=== PATIENT | female | born 1930 | race Caucasian/White ===

== ENCOUNTER 2017-03-23 13:42 | Inpatient (IN) ==
[2017-03-23] MEDS ORDERED: *HR* FentaNYL (PF) 100 MCG/2 ML VIAL IVP ONE ×2 (13:47→15:42)
[2017-03-23] MEDS ORDERED: Ondansetron 4 MG/2 ML VIAL IVP ONE (13:53)
--- NOTE | 2017-03-23 13:56 | Emergency Department Note ---
Disposition Clinical Impression: Fracture of hip Qualifiers: Encounter type: initial encounter Fracture type: closed Laterality: right Qualified Code(s): S72.001A - Fracture of unspecified part of neck of right femur, initial encounter for closed fracture Disposition: Admitted As Inpatient Condition: Fair General Adult HPI - General Chief complaint: ED Extremity Injury, Lower Stated complaint: fall, right hip pain Time Seen by Provider: 03/23/17 13:45 Source: patient, EMS Limitations: no limitations Nursing Notes Reviewed: Yes Vital Signs Reviewed: Yes - History of Present Illness Pain Scale: 0 - Related Data Home Medications Medication Instructions Recorded Confirmed Atorvastatin Calcium [Atorvastatin 80 mg PO QPM 03/23/17 03/23/17 Calcium] Brinzolamide 1% [Azopt] 1 drop BOTH EYES QPM 03/23/17 03/23/17 Latanoprost [Xalatan] 1 drop RIGHT EYE QPM 03/23/17 03/23/17 Raloxifene [Evista] 60 mg PO QAM 03/23/17 03/23/17 Sertraline [Zoloft] 100 mg PO QPM 03/23/17 03/23/17 Allergies Allergy/AdvReac Type Severity Reaction Status Date / Time No Known Allergies Allergy Verified 03/23/17 13:44 Past Medical History - Past Medical History Medical history: Reports: hyperlipidemia, osteoporosis Psychiatric history: Reports: depression - Social History Smoking Status: Never smoker Alcohol use: Reports: none Drug use: Reports: none Physical Exam - General Limitations: no limitations General appearance: alert, in no apparent distress Course Vital Signs Temperature 98 F 03/23/17 13:44 Pulse Rate 83 03/23/17 13:44 Respiratory Rate 20 03/23/17 13:44 Blood Pressure 169/94 03/23/17 13:44 O2 Sat by Pulse Oximetry 91 03/23/17 13:44 Temperature 98 F 03/23/17 13:44 Pulse Rate 77 03/23/17 15:26 Respiratory Rate 20 03/23/17 15:26 Blood Pressure 160/94 03/23/17 15:26 O2 Sat by Pulse Oximetry 97 03/23/17 15:26 Oxygen Delivery Oxygen Delivery Room Air Medical Decision Making - MDM Narrative Medical decision making narrative: I examined this patient and my medical decision-making was reviewed with the Resident Physician. I agree with the documented findings, disposition and treatment plan as described except to the extent set forth below. Patient seen and evaluated on arrival with EMS by Dr. Jacob and myself, agrees his evaluation and management plan, supervised the care of the patient felt stated. Patient was in her driveway twisted around and she fell she things her feet became entangled. Landed on her right hip. Pain and hip pain is not dereliction moves or stands on it. Denies any other injuries did not strike her head. There are some for pain x-ray the area and then reassess. She is in agreement with plan. Hip X-Ray 03/23/17 13:46 IMPRESSION: Acute traumatic displaced and angulated subcapital right femoral neck fracture. D/ / Jean-Pierre Calderon MD / Jean-Pierre Calderon MD Interpreting Provider: Jean-Pierre Calderon MD 1520 hrs.: Patient does have a fracture. Airam speak with orthopedics. We will get basic labs for surgery and admit her to the hospitalist orthopedics consult in. She and family in agreement with plan. Impressions acute right femoral neck fracture status post fall. - Lab Data Result diagrams: 03/23/17 15:33 03/23/17 15:33 Lab Results 03/23/17 03/23/17 03/23/17 Range/Units 15:33 15:33 15:33 WBC 12.2 H (4.3-11.1) K/mcL RBC 4.51 (3.82-4.97) M/mcL Hgb 12.5 (11.5-15.4) g/dL Hct 39.9 (35.3-44.9) % MCV 88.5 (83.0-100.0) fL MCH 27.7 L (28.0-33.3) pg MCHC 31.3 L (31.6-35.5) g/dL RDW 15.1 H (11.5-14.5) % Plt Count 218 (140-400) K/mcL MPV 9.5 (9.4-12.4) fL Immature Gran % 0.7 (0-4) % Seg Neutrophils % 86.1 % Lymphocytes % 7.0 % Monocytes % 5.8 % Eosinophils % 0.2 % Basophils % 0.2 % Neutrophils # 10.5 H (1.6-8.9) K/mcL Lymphocytes # 0.9 (0.6-4.6) K/mcL Monocytes # 0.7 (0.0-1.3) K/mcL Eosinophils # 0.0 (0.0-0.6) K/mcL Basophils # 0.0 (0.0-0.2) K/mcL PT 11.4 (9.4-12.1) Seconds INR 1.1 Sodium 143 (136-145) mEq/L Potassium 4.2 (3.5-4.5) mEq/L Chloride 111 H (98-109) mEq/L Carbon Dioxide 27 (19-29) mEq/L BUN 19 (7-20) mg/dL Creatinine 0.78 (0.57-1.11) mg/dL Est GFR ( Amer) > 60 (> 60) Est GFR (Non-Af Amer) > 60 (> 60) BUN/Creatinine Ratio 24 (6-26) Glucose 112 H (70-99) mg/dL Calculated Osmolality 299 (280-300) Calcium 9.2 (8.6-10.8) mg/dL
--- NOTE | 2017-03-23 15:34 | Emergency Department Note ---
Disposition Clinical Impression: Fracture of hip Disposition: Admitted As Inpatient Condition: Fair Lower Extremity Injury HPI - General Chief Complaint: ED Extremity Injury, Lower Stated Complaint: fall, right hip pain Time Seen by Provider: 03/23/17 13:45 Source: patient, EMS Limitations: no limitations Nursing Notes Reviewed: Yes Vital Signs Reviewed: Yes - History of Present Illness HPI Narrative: Patient presents after evaluation of fall. She states she was walking on the gravel in her feet slipped. She did not hit her head area did not pass out. Is not on anticoagulation. Has stopped taking her aspirin secondary to subconjunctival hemorrhage. Patient has pain to the right hip. Pain with movement. Mild tenderness to palpation. - Related Data Home Medications Medication Instructions Recorded Confirmed Atorvastatin Calcium [Atorvastatin 80 mg PO QPM 03/23/17 03/23/17 Calcium] Brinzolamide 1% [Azopt] 1 drop BOTH EYES QPM 03/23/17 03/23/17 Latanoprost [Xalatan] 1 drop RIGHT EYE QPM 03/23/17 03/23/17 Raloxifene [Evista] 60 mg PO QAM 03/23/17 03/23/17 Sertraline [Zoloft] 100 mg PO QPM 03/23/17 03/23/17 Allergies Allergy/AdvReac Type Severity Reaction Status Date / Time No Known Allergies Allergy Verified 03/23/17 13:44 Review of Systems: CONSTITUTIONAL: No weight loss, fever, chills, weakness or fatigue. HEENT: Eyes: No visual changes. Ears, Nose, Throat: No hearing loss, difficulty talking or unable to swallow. SKIN: No rash or itching. CARDIOVASCULAR: No chest pain, chest pressure or chest discomfort. No palpitations or edema. RESPIRATORY: No shortness of breath, cough or sputum. GASTROINTESTINAL: No anorexia, nausea, vomiting or diarrhea. No abdominal pain or blood. GENITOURINARY: No burning on urination or hematuria. NEUROLOGICAL: No headache, dizziness, syncope, paralysis, ataxia, numbness or tingling in the extremities. No change in bowel or bladder control. MUSCULOSKELETAL: Hip pain Past Medical History - Past Medical History Medical history: Reports: hyperlipidemia, osteoporosis Psychiatric history: Reports: depression - Social History Smoking Status: Never smoker Alcohol use: Reports: none Drug use: Reports: none Physical Exam General appearance: NAD, conversant Eyes: anicteric sclerae, moist conjunctivae; no lid-lag; PERRL HENT: Atraumatic; oropharynx clear with moist mucous membranes Neck: Normal appearance; Trachea midline Chest: Symmetrical chest rise; No respiratory distress Extremities: Tenderness to palpation of the right hip. Sensation intact. No neurovascular compromise. Only pain with palpation not at rest. Skin: Normal temperature, turgor and texture; no rash, ulcers or subcutaneous nodules Psych: Appropriate mood and affect Neuro: Awake and alert - General Limitations: no limitations General appearance: alert, in no apparent distress Course - Consultations Consultation #1: Discussed with Dr. Calderon. Patient to be brought into the hospital for further evaluation. Request admission to the hospital service. Consultation #2: Discussed with hospitalist Dr. Churchill. Patient accepted for admission. Vital Signs Temperature 98 F 03/23/17 13:44 Pulse Rate 83 03/23/17 13:44 Respiratory Rate 20 03/23/17 13:44 Blood Pressure 169/94 03/23/17 13:44 O2 Sat by Pulse Oximetry 91 03/23/17 13:44 Temperature 98.3 F 03/23/17 17:40 Pulse Rate 82 03/23/17 17:40 Respiratory Rate 20 03/23/17 17:40 Blood Pressure 138/83 03/23/17 17:40 O2 Sat by Pulse Oximetry 93 03/23/17 18:18 Oxygen Delivery Oxygen Delivery Nasal Cannula Extremity Injury, Lower - Lab Data Result diagrams: 03/23/17 15:33 03/23/17 15:33 Lab Results 03/23/17 03/23/17 03/23/17 Range/Units 15:33 15:33 15:33 WBC 12.2 H (4.3-11.1) K/mcL RBC 4.51 (3.82-4.97) M/mcL Hgb 12.5 (11.5-15.4) g/dL Hct 39.9 (35.3-44.9) % MCV 88.5 (83.0-100.0) fL MCH 27.7 L (28.0-33.3) pg MCHC 31.3 L (31.6-35.5) g/dL RDW 15.1 H (11.5-14.5) % Plt Count 218 (140-400) K/mcL MPV 9.5 (9.4-12.4) fL Immature Gran % 0.7 (0-4) % Seg Neutrophils % 86.1 % Lymphocytes % 7.0 % Monocytes % 5.8 % Eosinophils % 0.2 % Basophils % 0.2 % Neutrophils # 10.5 H (1.6-8.9) K/mcL Lymphocytes # 0.9 (0.6-4.6) K/mcL Monocytes # 0.7 (0.0-1.3) K/mcL Eosinophils # 0.0 (0.0-0.6) K/mcL Basophils # 0.0 (0.0-0.2) K/mcL PT 11.4 (9.4-12.1) Seconds INR 1.1 Sodium 143 (136-145) mEq/L Potassium 4.2 (3.5-4.5) mEq/L Chloride 111 H (98-109) mEq/L Carbon Dioxide 27 (19-29) mEq/L BUN 19 (7-20) mg/dL Creatinine 0.78 (0.57-1.11) mg/dL Est GFR ( Amer) > 60 (> 60) Est GFR (Non-Af Amer) > 60 (> 60) BUN/Creatinine Ratio 24 (6-26) Glucose 112 H (70-99) mg/dL Calculated Osmolality 299 (280-300) Calcium 9.2 (8.6-10.8) mg/dL
[2017-03-23 15:41] LABS: Hematocrit 39.9 % (35.3-44.9); Hemoglobin 12.5 g/dL (11.5-15.4); Mean Corpuscular HGB Conc 31.3 g/dL (31.6-35.5); Mean Corpuscular Hemoglobin 27.7 pg (28.0-33.3); Mean Corpuscular Volume 88.5 fL (83.0-100.0); Mean Platelet Volume 9.5 fL (9.4-12.4); Platelet Count 218 K/mcL (140-400); Red Blood Count 4.51 M/mcL (3.82-4.97); Red Cell Distribution Width 15.1 % (11.5-14.5); Segmented Neutrophils % 86.1 %
[2017-03-23 15:42] LABS: Basophils % 0.2 %; Eosinophils % 0.2 %; Immature Granulocytes % 0.7 % (0-4); Lymphocytes # 0.9 K/mcL (0.6-4.6); Monocytes # 0.7 K/mcL (0.0-1.3); Monocytes % 5.8 %; Neutrophils # 10.5 K/mcL (1.6-8.9)
[2017-03-23 15:46] LABS: INR 1.1; Prothrombin Time 11.4 Seconds (9.4-12.1)
[2017-03-23 15:54] LABS: BUN/Creatinine Ratio 24 (6-26); Blood Urea Nitrogen 19 mg/dL (7-20); Calcium 9.2 mg/dL (8.6-10.8); Carbon Dioxide 27 mEq/L (19-29); Chloride 111 mEq/L (98-109); Glucose 112 mg/dL (70-99); Osmolality,Calculated 299 (280-300); Potassium 4.2 mEq/L (3.5-4.5); Sodium 143 mEq/L (136-145); eGFR For African Americans > 60 (> 60); eGFR For Non-African Americans > 60 (> 60)
[2017-03-23] MEDS ORDERED: Naloxone 0.4 MG/ML INJ IVP PRN (17:17)
[2017-03-23] MEDS ORDERED: Acetaminophen 325 MG TABLET PO PRN (17:17)
[2017-03-23] MEDS ORDERED: *HR* HYDROcodone/Acet 5/325 mg TABLET PO PRN (17:17)
[2017-03-23] MEDS ORDERED: Ondansetron 4 MG/2 ML VIAL IVP PRN (17:17)
--- NOTE | 2017-03-23 17:49 | Internal Med History&Physical ---
<SandysoniabaldemarRolly mclean - Last Filed: 03/23/17 18:39> Date of Encounter: 03/23/17 Time of Encounter: 16:30 Assessment and Plan (1) Fracture of right hip Current visit: Yes Status: Acute Patient presents with acute fracture right hip sustained from a fall today. Patient states that she was outside and pivoted to turn around and fell. She denies dizziness, lightheadedness, or syncope. 2-View XR of the right hip today shows acute traumatic displaced and angulated subcapital right femoral neck fracture. Orthopedic surgery consult ordered and discussed with Dr. Calderon who will see patient today with plans for surgery tomorrow if there are no unforeseen circumstances. Echocardiogram ordered. Patient to be placed on cardiac telemetry and supplemental O2 with SpO2 monitoring. Patient to have bilateral SCDs placed on LEs tonight with heparin 5,000 units SQ Q8 and daily 81 mg aspirin therapy to begin tomorrow post-surgery. Stair-step pain medications ordered for pain management and will be adjusted according to patient's pain. Qualifiers: Encounter type: initial encounter Fracture type: closed Qualified Code(s) : S72.001A - Fracture of unspecified part of neck of right femur, initial encounter for closed fracture (2) HTN (hypertension) Current visit: Yes Status: Acute Patient presents with acute hypertension most likely related to current pain level from right hip fracture. Patient's BP while in the ED was 169/94. Patient does not currently take any anti-hypertensive medication. Will monitor patient' s vital signs and blood pressure and and anti-hypertensive medication such as Lopressor or hydralazine if patient becomes hypertensive chronically. Qualifiers: Hypertension type: unspecified Qualified Code(s): I10 - Essential (primary ) hypertension (3) SOB (shortness of breath) Current visit: Yes Status: Acute Patient presents with acute shortness of breath most likely related to pain from current hip fracture. Patient placed on supplemental O2 with titration if SPO2 less than 92% and continuous SPO2 monitoring. Monitor patient's vital signs. (4) Pain Current visit: Yes Status: Acute Patient presents with acute pain related to fall today which resulted in fracture of the right hip. Patient received fentanyl in the ED and we will stair -step pain medication for pain management and adjust accordingly to patient's pain level. Bed rest ordered with [id number] when able post-surgery. (5) HLD (hyperlipidemia) Current visit: Yes Status: Chronic Patient presents with history of chronic hyperlipidemia. Lipid panel ordered. Will continue patient's atorvastatin. Qualifiers: Hyperlipidemia type: pure hypercholesterolemia Qualified Code(s): E78.00 - Pure hypercholesterolemia, unspecified; E78.0 - Pure hypercholesterolemia (6) DVT prophylaxis Current visit: Yes Status: Acute Patient to be placed on DVT prophylaxis to her current admission protocol and bedrest status. Bilateral SCDs to be placed on patient's LEs tonight with Heparin 5,000 units SQ Q8 to begin tomorrow post-surgery. Will begin aspirin therapy tomorrow post-surgery as well. Internal Medicine - H&P: HPI Chief complaint: Fall/Hip fracture Admitted From: Emergency Dept Plans for Post Hospital Care: Home History of present illness: Ms. Loredo is a 86 year old female who presents from the ED post-fall today with right hip pain and hip fracture. Patient states that she was outside and pivoted to turn around and fell. She denies dizziness, lightheadedness, or syncope. Patient has a history of osteoporosis, hyperlipidemia, and bilateral glaucoma. She reports that she has no know allergies. She also denies a history of falls, recent illness, fever, chills, nausea, vomiting, abdominal pain, chest pain, headache, pre-syncope, or syncope. Ms. Loredo's family states that she is quite active and very determined. CXR today shows no acute cardiopulmonary findings. 2-View XR of the right hip today shows acute traumatic displaced and angulated subcapital right femoral neck fracture. Patient states that she is only in pain when she is moved or when she attempts to move her leg. Patient is at moderate risk for further morbidity due to current pain and symptoms and will be placed as inpatient status with Orthopedic Surgery consult ordered and discussed with Dr. Calderon who will see the patient today and perform surgery tomorrow given any unforeseen circumstances. Patient to be placed NPO at midnight for possible surgical intervention. Patient's SpO2 in the ED was 91% so will place on supplemental O2 with SpO2 monitoring. Patient to be place on continuous telemetry for sinus arrhythmia and echocardiogram ordered. Bilateral SCDs ordered tonight for patient's LEs with Heparin 5,000 units SQ Q8 ordered tomorrow post-surgery. PT/ OT/SW consults ordered to assess patient's post-surgery rehab needs. Falls- safety precautions. Patient to be monitored closely. Time spent with family and patient >50 minutes. Past Med Surg Social Fam HX - Past Medical History Source: patient Medical history: hyperlipidemia, osteoporosis Psychiatric history: depression - Past Surgical History Surgical History: cataract (Bilateral), other (Left retinal repair) - Social History Smoking Status: Never smoker Alcohol use: none Drug use: none Current living situation: Home, With Family Activity Level: Independent ambulation Recent Out of Country Travel Within the Last 8 Weeks: No Exposure or Possible Exposure to Illness During Travel: No - Family History Daughter Hx Family Cancer: Yes (lymphoma and endometrial) Son Hx Family Cancer: Yes (prostate) Internal Medicine - H&P: Meds Atorvastatin Calcium [Atorvastatin Calcium] 80 mg PO QPM 03/23/17 [History] Brinzolamide 1% [Azopt] 1 drop BOTH EYES QPM 03/23/17 [History] Latanoprost [Xalatan] 1 drop RIGHT EYE QPM 03/23/17 [History] Raloxifene [Evista] 60 mg PO QAM 03/23/17 [History] Sertraline [Zoloft] 100 mg PO QPM 03/23/17 [History] 3 Allergy/AdvReac Type Severity Reaction Status Date / Time No Known Allergies Allergy Verified 03/23/17 13:44 All Systems PM: A 10-system review of systems was performed and is negative for pertinent findings except as documented above in the HPI. - Constitutional Constitutional: no chills, no fever(s), no night sweats - EENT Eyes: no change in vision, no discharge, no pain, no photophobia Ears: no ear discharge, no ear pain, no tinnitus Nose, mouth and throat: no dysphagia, no nasal discharge, no neck pain, no sore throat - Breasts Breasts: as per HPI - Cardiovascular Cardiovascular ROS IM: no chest pain, no diaphoresis, no dyspnea, no lightheadedness, no palpitations, no syncope - Respiratory Respiratory: no cough, no dyspnea, no wheezing, no excessive phlegm production - Gastrointestinal Gastrointestinal: no abdominal pain, no diarrhea, no hematemesis, no hematochezia, no melena, no nausea, no vomiting - Genitourinary Genitourinary: no change in urinary stream, no dysuria, no flank pain, no hematuria Menstruation: as per HPI - Musculoskeletal Musculoskeletal ROS IM: as per HPI, other (Right hip pain d/t fracture) - Integumentary Integumentary IM: no rash, no unusual bruising - Neurological Neurological ROS: no confusion, no convulsions, no focal weakness, no numbness, no tingling, no tremor(s) - Psychiatric Psychiatric: as per HPI - Endocrine Endocrine IM: as per HPI - Hematologic/Lymphatic Hematologic/Lymphatic: no easy bruising - Allergic/Immunologic Allergic/Immunologic: as per HPI - Constitutional Vitals: Temp Pulse Resp BP Pulse Ox 98 F 77 16 159/88 97 03/23/17 13:44 03/23/17 15:26 03/23/17 16:41 03/23/17 16:41 03/23/17 15:26 General appearance: Present: cooperative, mild distress, A&O X 3, pleasant, answers questions appropriately - Head Head exam: Present: atraumatic, normocephalic - Eye Eye exam: Present: PERRL, conjuntiva pink, sclera anicteric Pupils: Present: PERRL - ENT ENT exam: Present: normal exam, normal external ear exam - Neck Neck exam general surgery: Present: normal inspection, supple, trachea midline. Absent: lymphadenopathy - Respiratory Respiratory exam: Present: CTAB. Absent: accessory muscle use, rales, rhonchi, wheezes - Cardiovascular Cardiovascular exam: Present: RRR, +S1, +S2. Absent: diastolic murmur, gallop, rubs, systolic murmur - GI/Abdominal GI/Abdominal exam: Present: normal bowel sounds, soft, no peritoneal signs. Absent: distended, tenderness - Rectal Rectal exam: Present: deferred - Additional comments: exam deferred. - Extremities Exam Extremities exam: Present: warm, radial pulses palpable and symmetrical Additional comments: Patient has pain with movement of right hip or leg due to fracture. - Back Exam Back exam: Present: normal inspection - Neurological Exam Neurological exam: Present: CN II-XII intact, oriented X3, no focal deficits. Absent: pronater drift, facial droop, speech deficit - Psychiatric Psychiatric exam: Present: normal affect, normal mood - Skin Skin exam: Present: dry, intact Internal Med - H&P Results - Labs CBC & Chem 7: 03/23/17 15:33 03/23/17 15:33 - EKG Data EKG shows normal: sinus rhythm - EKG Data Prior EKG available for review: yes When compared to previous EKG: there are significant changes Interpretation IM: suggestive of ischemia EKG comments: 03/23/17 18:11 EKG dated 10/14/1999 shows sinus arrhythmia with frequent multiformed premature ventricular contractions, marked left axis deviation, incomplete right bundle branch block, 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 EKG dated 03/23/17 shows sinus rhythm with sinus arrhythmia, left and Teare or fascicular block, nonspecific T-wave abnormality. - Diagnostic Studies Other Images Additional comments: Impressions Hip X-Ray 03/23/17 13:46 IMPRESSION: Acute traumatic displaced and angulated subcapital right femoral neck fracture. D/ / Jean-Pierre Calderon MD / Jean-Pierre Calderon MD Interpreting Provider: Jean-Pierre Calderon MD Chest x-ray Additional comments: Impressions Chest X-Ray 03/23/17 15:12 IMPRESSION: No acute cardiopulmonary findings. D/ / 03/23/2017 15:40:35 Rigo Najera MD / addison Interpreting Provider: Rigo Najera MD <Zuleyka Churchill - Last Filed: 03/23/17 19:42> Date of Encounter: 03/23/17 Internal Medicine - H&P: HPI History of present illness: Ms. Loredo is a 86 year old female All Systems PM: A 10-system review of systems was performed and is negative for pertinent findings except as documented above in the HPI. - Constitutional Vitals: Temp Pulse Resp BP Pulse Ox 98.3 F 82 20 138/83 93 03/23/17 17:40 03/23/17 17:40 03/23/17 17:40 03/23/17 17:40 03/23/17 18:18 Internal Med - H&P Results - Labs CBC & Chem 7: 03/23/17 15:33 03/23/17 15:33 - Attending Attestation I saw and examined pt. I have discussed with [employer] regarding the management plan, agree with the documentation. Pt has fracture on mechanical fall. Will closely monitor pt, give IVF and pain medication. Orthopedic consult for surgery.
[2017-03-23] MEDS ORDERED: Latanoprost 2.5 ML BOTTLE RIGHT EYE SCH (18:00)
[2017-03-23] MEDS ORDERED: *HR* Heparin 5,000 UNIT/ML VIAL SQ SCH ×2 (18:00→22:00)
[2017-03-23] MEDS ORDERED: Brinzolamide 1% 10 ML BOTTLE BOTH EYES SCH (18:00)
--- NOTE | 2017-03-23 18:36 | Orthopedic Consult Note ---
Date of Encounter: 03/23/17 Time of Encounter: 18:32 History of Present Illness Chief complaint: Right hip pain HPI: Ms. Loredo is a 86 year old female who sustained a mechanical fall while outside on the driveway earlier today. She fell and landed on her right side injuring her right hip. She had immediate pain and was able to ambulate. She was transferred to [facility] where x-rays taken revealed evidence of a right hip fracture. She is admitted now for definitive management. Patient denies any dizziness or vertigo loss of consciousness etc. Denies head or other injuries. Denies neurovascular complaints. For complete history and physical data please refer to the completed portion the medical record. Pertinent orthopedic examination reveals a right lower extremity held in a somewhat shortened but minimally externally rotated position. Distal neurosensory exam is intact. X-rays reveal a displaced right femoral neck fracture. There is some fragment contact, but disruption of the normal neck architecture is present. Laboratory data includes a hemoglobin of 12.5. Platelet count is 218. White blood cell count is 12.2. Chemistries are unremarkable. Impression: Displaced right femoral neck fracture Recommendation: Discussed with the patient and family the 3 options. First would be nonoperative management which I do not feel is appropriate to this active in dynamic 86-year-old woman. The second would be to consider closed reduction and percutaneous pinning of the femoral neck fracture though this has a unpredictable outcome with a high incidence of either fracture nonunion or avascular necrosis of the femoral head and would require limited ambulation. The final option would be to proceed with a hemiarthroplasty of the right hip. This would allow for immediate full weightbearing ambulation though she will have to have some total hip precautions. We discussed the procedures at length. After extended discussion the patient and family agreed to proceed with a hemiarthroplasty of the right hip. Informed consent was signed after we discussed the potential risks and complications including but not limited to bleeding infection blood clots nerve injury stiffness hip dislocation and the possibility of leg length or rotational deformities. I have scheduled her for surgery in the morning. Preoperative orders have been written. Thank you very much for allowing me to see and treat Mrs. Loredo. Sincerely , Tristen Calderon,DO Past Med Surg Social Fam HX - Past Medical History Medical history: hyperlipidemia, osteoporosis Psychiatric history: depression - Past Surgical History Surgical History: cataract (Bilateral), other (Left retinal repair) - Social History Smoking Status: Never smoker Smokeless Tobacco Status: No Alcohol use: none Drug use: none - Family History Daughter Hx Family Cancer: Yes (lymphoma and endometrial) Son Hx Family Cancer: Yes (prostate) Medications and Allergies Atorvastatin Calcium [Atorvastatin Calcium] 80 mg PO QPM 03/23/17 [History] Brinzolamide 1% [Azopt] 1 drop BOTH EYES QPM 03/23/17 [History] Latanoprost [Xalatan] 1 drop RIGHT EYE QPM 03/23/17 [History] Raloxifene [Evista] 60 mg PO QAM 03/23/17 [History] Sertraline [Zoloft] 100 mg PO QPM 03/23/17 [History] 3 Allergy/AdvReac Type Severity Reaction Status Date / Time No Known Allergies Allergy Verified 03/23/17 13:44 All Systems Reviewed: A 10-system review of systems was performed and is negative for pertinent findings except as documented above in the HPI. Physical Exam - Constitutional Vitals: Temp Pulse Resp BP Pulse Ox 98.3 F 82 20 138/83 93 03/23/17 17:40 03/23/17 17:40 03/23/17 17:40 03/23/17 17:40 03/23/17 18:18 Results - Labs Result Diagrams: 03/23/17 15:33 03/23/17 15:33 Labs: Abnormal lab results WBC 12.2 K/mcL (4.3-11.1) H 03/23/17 15:33 MCH 27.7 pg (28.0-33.3) L 03/23/17 15:33 MCHC 31.3 g/dL (31.6-35.5) L 03/23/17 15:33 RDW 15.1 % (11.5-14.5) H 03/23/17 15:33 Neutrophils # 10.5 K/mcL (1.6-8.9) H 03/23/17 15:33 Chloride 111 mEq/L (98-109) H 03/23/17 15:33 Glucose 112 mg/dL (70-99) H 03/23/17 15:33 All other labs normal. Consult Discharge Plan - Plan Referrals: Andrea Stuart MD [Primary Care Provider] -
[2017-03-23] MEDS: *HR* Morphine 2 MG/ML SYRINGE IVP PRN ×2 (19:03→23:03)
[2017-03-23] MEDS: Pantoprazole 40 MG VIAL IVP SCH (19:03)
[2017-03-23] MEDS ORDERED: 0.9 % Sodium Chloride 1,000 ML IVC SCH (19:45)
[2017-03-23 19:50] LABS: Bilirubin,Urine Negative (Negative); Blood,Urine Negative (Negative); Clarity,Urine Clear (Clear); Color,Urine Yellow (Yellow); Glucose,Urine (UA) Normal (Normal); Ketones,Urine 15 mg/dL (Negative); Leukocyte Esterase,Urine Negative (Negative); Nitrite,Urine Negative (Negative); PH,Urine 7.5 pH Units (5.0-8.0); Protein,Urine Negative (Neg-Trace); Specific Gravity,Urine 1.015 (1.010-1.025); Urobilinogen,Urine Normal (Normal)
[2017-03-24 01:33] LABS: Basophils % 0.3 %; Eosinophils % 0.1 %; Hematocrit 36.9 % (35.3-44.9); Hemoglobin 11.8 g/dL (11.5-15.4); Immature Granulocytes % 0.3 % (0-4); Lymphocytes # 1.1 K/mcL (0.6-4.6); Lymphocytes % 9.7 %; Mean Corpuscular Hemoglobin 28.1 pg (28.0-33.3); Mean Corpuscular Volume 87.9 fL (83.0-100.0); Mean Platelet Volume 9.3 fL (9.4-12.4); Monocytes % 8.4 %; Neutrophils # 9.4 K/mcL (1.6-8.9); Platelet Count 191 K/mcL (140-400); Red Cell Distribution Width 15.2 % (11.5-14.5); Segmented Neutrophils % 81.2 %
[2017-03-24 01:37] LABS: INR 1.1; Prothrombin Time 11.8 Seconds (9.4-12.1)
[2017-03-24 01:40] LABS: Activated Partial Thrombo Time 25.7 Seconds (26.0-36.0)
[2017-03-24 01:49] LABS: BUN/Creatinine Ratio 21 (6-26); Blood Urea Nitrogen 15 mg/dL (7-20); Calcium 8.8 mg/dL (8.6-10.8); Carbon Dioxide 26 mEq/L (19-29); Chloride 109 mEq/L (98-109); Cholesterol 154 mg/dL (< 200); Glucose 138 mg/dL (70-99); HDL Cholesterol 51 mg/dL (40-59); LDL Cholesterol,Calculated 90 mg/dL (0-99); Magnesium 1.9 mg/dL (1.6-2.6); Osmolality,Calculated 293 (280-300); Potassium 3.4 mEq/L (3.5-4.5); Sodium 140 mEq/L (136-145); Triglycerides 64 mg/dL (< 150); eGFR For African Americans > 60 (> 60); eGFR For Non-African Americans > 60 (> 60)
[2017-03-24] MEDS: *HR* Morphine 2 MG/ML SYRINGE IVP PRN (04:41)
--- NOTE | 2017-03-24 09:08 | Internal Med Progress Note ---
Date of Encounter: 03/24/17 Time of Encounter: 09:06 - Assessment and plan (1) Fracture of right hip Current Visit: Yes Status: Acute Assessment and plan: Displaced right femoral neck fracture Schedule for hemiarthroplasty later today with Dr. Kvng ahuja as needed Qualifiers: Encounter type: initial encounter Fracture type: closed Qualified Code(s) : S72.001A - Fracture of unspecified part of neck of right femur, initial encounter for closed fracture (2) Hypokalemia Current Visit: Yes Status: Acute Assessment and plan: Add potassium to IV fluids (3) Osteoporosis Current Visit: Yes Status: Acute Assessment and plan: Continue raloxifene and calcium supplements with vitamin D Qualifiers: Osteoporosis type: age-related Presence of current pathological fracture: unspecified Qualified Code(s): M81.0 - Age-related osteoporosis without current pathological fracture (4) Pain Current Visit: Yes Status: Acute (5) HLD (hyperlipidemia) Current Visit: Yes Status: Chronic Assessment and plan: Continue Lipitor Qualifiers: Hyperlipidemia type: pure hypercholesterolemia Qualified Code(s): E78.00 - Pure hypercholesterolemia, unspecified; E78.0 - Pure hypercholesterolemia - Subjective Interval history: Complaints of hip pain only with she moves, denies any chest pain, shortness of breath, no abdominal pain, no dysuria. No diarrhea - Constitutional Vitals: Temp Pulse Resp BP Pulse Ox 97.9 F 81 16 126/83 99 03/24/17 06:36 03/24/17 06:36 03/24/17 06:36 03/24/17 06:36 03/24/17 06:36 General appearance: Present: cooperative, mild distress, A&O X 3, pleasant, answers questions appropriately - Head Head exam: Present: atraumatic, normocephalic - Eye Eye exam: Present: PERRL, conjuntiva pink, sclera anicteric Pupils: Present: PERRL - Neck Neck exam general surgery: Present: supple, trachea midline. Absent: lymphadenopathy - Respiratory Respiratory exam: Present: CTAB. Absent: accessory muscle use, rales, rhonchi, wheezes - Cardiovascular Cardiovascular exam: Present: RRR, +S1, +S2. Absent: diastolic murmur, gallop, rubs, systolic murmur - GI/Abdominal GI/Abdominal exam: Present: normal bowel sounds, soft, no peritoneal signs. Absent: distended, tenderness - Extremities Exam Extremities exam: Present: warm, radial pulses palpable and symmetrical. Absent : calf tenderness, cyanotic, pedal edema - Neurological Exam Neurological exam: Present: CN II-XII intact, oriented X3, no focal deficits. Absent: pronater drift, facial droop, speech deficit Additional comments: Right hip swelling, unable to move the right lower extremity due to pain, no hematomas or ecchymosis - Skin Skin exam: Present: dry, intact Internal Medicine: Result - Labs CBC & Chem 7: 03/24/17 01:10 03/24/17 01:10 Labs: Short CBC 03/24/17 Range/Units 01:10 WBC 11.6 H (4.3-11.1) K/mcL Hgb 11.8 (11.5-15.4) g/dL Hct 36.9 (35.3-44.9) % Plt Count 191 (140-400) K/mcL Neutrophils # 9.4 H (1.6-8.9) K/mcL BMP 03/24/17 01:10 Sodium 140 Potassium 3.4 L Chloride 109 Carbon Dioxide 26 BUN 15 Creatinine 0.70 Glucose 138 H Calcium 8.8 Urine 03/23/17 Range/Units 19:40 Urine Color Yellow (Yellow) Urine Clarity Clear (Clear) Urine pH 7.5 (5.0-8.0) pH Units Ur Specific [place] 1.015 (1.010-1.025) Urine Protein Negative (Neg-Trace) mg/dL Urine Glucose (UA) Normal (Normal) mg/dL - ABG Interpretation ABG results: PT/INR, D-dimer PT 11.8 Seconds (9.4-12.1) 03/24/17 01:10 - VTE Documentation of Mechanical Device: Graduated compression elastic hosiery Consult Discharge Plan - Plan Referrals: Andrea Stuart MD [Primary Care Provider] -
--- NOTE | 2017-03-24 09:24 | Anesthesia Evaluation PreOp ---
Date of Encounter: 03/24/17 Time of Encounter: 09:22 - Past History Planned Operation: R hip hemiarthroplasty Cardiac History: HTN, Hyperlipidemia Pulmonary History: Denies Any Significant HX CLIENT RESOLUTION SPECIALIST History: Denies Any Significant HX Other Medical History: Denies Any Significant HX Anesthesia History: No Prior Anesthetic Complications, Past Anesthesia (hernia repair) Alcohol Use: none Drug use: none Medications and Allergies Atorvastatin Calcium [Atorvastatin Calcium] 80 mg PO QPM 03/23/17 [History] Brinzolamide 1% [Azopt] 1 drop BOTH EYES QPM 03/23/17 [History] Latanoprost [Xalatan] 1 drop RIGHT EYE QPM 03/23/17 [History] Raloxifene [Evista] 60 mg PO QAM 03/23/17 [History] Sertraline [Zoloft] 100 mg PO QPM 03/23/17 [History] 3 Allergy/AdvReac Type Severity Reaction Status Date / Time No Known Allergies Allergy Verified 03/23/17 13:44 - Meds/Allergy Pre-op Review Medications Reviewed: Yes Allergies Reviewed: Yes Beta Blockers on Current Med List: No Anesthesia Results - Labs 03/24/17 01:10 03/24/17 01:10 - Imaging EKG: report reviewed (EKG dated 03/23/17 shows sinus rhythm with sinus arrhythmia, left and Teare or fascicular block, nonspecific T-wave abnormality.) Anesthesia Exam Vital Signs/O2 Sat, Most Current Temp Pulse Resp BP Pulse Ox 97.9 F 81 16 126/83 99 03/24/17 06:36 03/24/17 06:36 03/24/17 06:36 03/24/17 06:36 03/24/17 06:36 Height: 1.7 Weight: 68kg NPO (# of Hours): >8 - HEENT Pupil (Motor): Pupils equal, EOMI Mallampati: II Teeth: Edentulous Oral Opening: Greater than 3 - CLIENT RESOLUTION SPECIALIST LOC: Oriented CLIENT RESOLUTION SPECIALIST Motor: Normal RUE, Normal LUE, Normal LLE, Normal Face, Deficit RLE (R hip fx) CLIENT RESOLUTION SPECIALIST Sensory: Normal: RUE, LUE, RLE, LLE, Face - Cardiac Rhythm: Regular - Pulmonary Breath Sounds: bilateral Clear Respiratory Effort: Symmetrical Anesthesia Assess/Plan ASA Score: 2 Modified Loris Scale for Level of Consciousness: Cooperative, oriented, and tranquil Anesthetic Plan: General Monitoring Plan: Standard Monitors
[2017-03-24] MEDS: Pantoprazole 40 MG VIAL IVP SCH (09:25)
[2017-03-24] MEDS ORDERED: *HR* Rocuronium Bromide 50 MG/5 ML VIAL ONE (09:51)
[2017-03-24] MEDS ORDERED: Lidocaine -MPF 4% 5 ML AMPUL ONE (09:51)
[2017-03-24] MEDS ORDERED: *HR* FentaNYL (PF) 100 MCG/2 ML VIAL ONE ×2 (09:51→13:27)
[2017-03-24] MEDS ORDERED: Lidocaine -MPF 2% 2 ML VIAL ONE (09:51)
[2017-03-24] MEDS ORDERED: *HR* Propofol 200 MG/20 ML VIAL IVP ONE (09:52)
[2017-03-24] MEDS ORDERED: Ondansetron 4 MG/2 ML VIAL ONE ×2 (09:59→11:36)
[2017-03-24] MEDS ORDERED: ceFAZolin 2,000 MG in D5% in Water 100 ML IVPB ONE (10:27)
[2017-03-24] MEDS ORDERED: Dexamethasone 4 MG/ML VIAL ONE (11:36)
[2017-03-24] MEDS ORDERED: *HR* Phenylephrine 10 MG/ML VIAL ONE (11:39)
[2017-03-24] MEDS ORDERED: *HR* HYDROmorphone (PF) 1 MG/ML SYRINGE IVP PRN (11:47)
[2017-03-24] MEDS ORDERED: Ringers Solution, Lactated 1,000 ML IVC SCH ×2 (12:00→14:43)
[2017-03-24] MEDS ORDERED: Neostigmine Methylsulfate 3 MG/3 ML SYRINGE ONE (12:49)
--- NOTE | 2017-03-24 14:01 | Operative Note ---
Date of procedure: 03/24/17 Pre-op diagnosis: Displaced right femoral neck fracture Post-op diagnosis: other (#1. Displaced right femoral neck fracture #2. Abductor tendon tear right hip) Procedure: #1. Hemiarthroplasty right hip #2. Abductor tendon repair right hip Implants: Cemented Gopal size 15 LD/FX stem with a 14 mm distal centralizer, a -4 mm adapter and a 49 mm unipolar endoprosthesis Complications: None Anesthesia: GETA Surgeon: Tristen Calderon Estimated blood loss (cc): 500 Condition: stable Disposition: PACU Procedure in Detail: Gross findings: Preoperative x-rays revealed a displaced right femoral neck fracture. Mild arthritic changes. Intraoperative findings included a tear of the insertion of a portion of the gluteus medius as well as the gluteus medius and minimus tendons. This is associated with a smooth bare spot on the trochanter. This was associated with the displaced femoral neck fracture. A cemented unipolar hemiarthroplasty was performed without complicating features. This was followed by repair of the abductors back to the trochanter. Stable hip was identified after placement of the prosthesis and tendon repair. Procedure: Patient is a operating room on the hospital bed was administered general anesthesia. Once adequate local anesthesia had been obtained the patient was transferred to the operating table at which point she was placed in the lateral recumbent position with the right side up and held in place with the lateral hip stabilizing system. All pressure points were well-padded. Right hip was now prepped and draped in normal standard fashion for surgery. A right lateral hip incision was created and dissection was carried is obtained his tissue down the level of fascia nathaniel which was cleared and split the length of the incision. Charnley retractor was placed. Immediately apparent was the tear of the anterior abductors. The remaining portion of the anterior abductors were taken off the trochanter in a subperiosteal manner and tagged with #2 FiberWire suture and reflected medially for traction later repair. The capsule was then taken down off the trochanter similar manner and a superior capsulotomy was made at the level of the acetabulum. Inferior release was performed. Femoral neck osteotomy was made. Femoral head was now removed from the acetabulum. Head was sized to approximately 49 mm. Acetabulum was now cleaned of clot and debris with mechanical debridement and pulsatile lavage. This was now sized to a 49. Attention was returned to the femur. Box osteotome was utilized to open up the medial trochanter and a T-handled reamer was passed down the femoral canal. Canal was then sequentially rasped up to and including the size 15. This sat just below the level of the osteotomy and calcar reaming was now performed. Trialing was performed and a -4 mm adapter was selected. Trial components were removed. Cement restrictor was placed distally. Canal was now cleaned with the femoral brush with pulsatile lavage and then dried with a combination of suction and sponges. At this time cement was mixed and appropriate time the cement was instilled into the femoral canal which fibular retrograde manner and pressurized proximally for about 15 seconds. The prosthesis with the distal centralizer was then placed and impacted until the collar sat on the medial femoral calcar. Excess cement was trimmed away. Compression was maintained upon the implant in the neutral position until the cement had fully hardened. Include up was now performed. Final irrigation and washout of the hip was performed. Most hip on the stem was cleaned and dried and then the head and adapter were placed and impacted with 3 sharp blows of the mallet. Hip was now reduced with a stable reduction obtained. At this time the capsule was repaired to the trochanter through drill holes and utilizing #2 FiberWire suture. This was followed by abductor tendon repair and reattachment of the abductors to the trochanter. The surface of the trochanter was debrided to cortico- cancellus bone and then repair was accomplished with multiple #2 FiberWire suture. Additional suture was placed in a [id number] manner approximating the abductors. This was reinforced with running #2 Quill suture. This is followed by final washout and then repair of the fascia with several #2 FiberWire suture followed by running #2 Quill. Subcutaneous space tissue was closed with #2 Quill. Subcutaneous tissue was closed with multiple inverted interrupted 202 0 undyed Vicryl followed by skin approximation with a running septic stitch of 20 Quill followed by skin glue. Once it hardened operative foam was applied and secured. Patient was then placed into an abduction pillow. Patient was then transferred to the hospital bed. Patient was now awakened extubated and transferred to the postanesthesia care unit in stable and satisfactory condition. All sponge and needlecounts are correct. No specimens were sent for pathology.
[2017-03-24] MEDS ORDERED: *HR* Morphine 2 MG/ML SYRINGE IVP PRN (14:43)
[2017-03-24] MEDS ORDERED: Naloxone 0.4 MG/ML INJ IVP PRN (14:43)
[2017-03-24] MEDS ORDERED: *HR* HYDROcodone/Acet 5/325 mg TABLET PO PRN (14:43)
[2017-03-24] MEDS ORDERED: Ondansetron 4 MG/2 ML VIAL IVP PRN (14:43)
--- NOTE | 2017-03-24 14:48 | Anesthesia Evaluation Post Op ---
Date of Encounter: 03/24/17 Time of Encounter: 14:46 - Vital Signs Vital Signs: Vital Signs/O2 Sat, Most Current Temp Pulse Resp BP Pulse Ox 98.4 F 96 16 104/64 93 03/24/17 14:30 03/24/17 14:24 03/24/17 14:24 03/24/17 14:30 03/24/17 14:24 Vital Signs/O2 Sat, Most Current - Lungs Lungs: Clear Ascult./Percussion - Airway Airway: Non-obstructed - Cardiovascular Regular Rate - Mental Status Mental Status: Alert & Oriented, Answers Appropriately, Baseline Status - Pain Pain Scale: 0 - Nausea Vomiting Nausea Vomiting: Not Present - Hydration Hydration: NPO, Rust catheter Notes: 03/24/17 14:47 I have assessed this patient and find they meet discharge criteria. - Discharge PostOp Status: Transfer Patient to floor
[2017-03-24] MEDS: ceFAZolin 2,000 MG in D5% in Water 100 ML IVPB SCH ×2 (15:59→23:19)
[2017-03-24] MEDS: *HR* Heparin 5,000 UNIT/ML VIAL SQ SCH ×2 (17:00→20:56)
[2017-03-24] MEDS: Aspirin Enteric Coated 81 MG Tablet PO SCH (17:18)
[2017-03-24] MEDS ORDERED: Latanoprost 2.5 ML BOTTLE RIGHT EYE SCH (18:00)
[2017-03-24] MEDS ORDERED: *HR* Heparin 5,000 UNIT/ML VIAL SQ SCH (18:00)
[2017-03-24] MEDS ORDERED: Aspirin Enteric Coated 81 MG Tablet PO SCH (18:00)
[2017-03-24] MEDS ORDERED: Brinzolamide 1% 10 ML BOTTLE BOTH EYES SCH (18:00)
[2017-03-24] MEDS ORDERED: 0.9 % Sodium Chloride 500 ML IVC ONE (20:24)
[2017-03-24 21:00] LABS: Basophils % 0.1 %; Hematocrit 33.5 % (35.3-44.9); Hemoglobin 10.4 g/dL (11.5-15.4); Immature Granulocytes % 0.5 % (0-4); Immature Platelets 1.4 % (1.1-6.1); Lymphocytes # 0.7 K/mcL (0.6-4.6); Lymphocytes % 5.6 %; Mean Corpuscular Hemoglobin 27.5 pg (28.0-33.3); Mean Corpuscular Volume 88.6 fL (83.0-100.0); Mean Platelet Volume 9.5 fL (9.4-12.4); Monocytes # 1.3 K/mcL (0.0-1.3); Monocytes % 9.7 %; Platelet Count 172 K/mcL (140-400); Red Blood Count 3.78 M/mcL (3.82-4.97); Red Cell Distribution Width 15.2 % (11.5-14.5); Segmented Neutrophils % 84.1 %
[2017-03-24 21:10] LABS: BUN/Creatinine Ratio 22 (6-26); Blood Urea Nitrogen 17 mg/dL (7-20); Calcium 8.3 mg/dL (8.6-10.8); Carbon Dioxide 23 mEq/L (19-29); Chloride 110 mEq/L (98-109); Glucose 167 mg/dL (70-99); Magnesium 1.6 mg/dL (1.6-2.6); Osmolality,Calculated 293 (280-300); Potassium 4.2 mEq/L (3.5-4.5); Sodium 139 mEq/L (136-145); eGFR For African Americans > 60 (> 60); eGFR For Non-African Americans > 60 (> 60)
[2017-03-24] MEDS: Acetaminophen 325 MG TABLET PO PRN (23:13)
[2017-03-25 04:58] LABS: Hematocrit 29.8 % (35.3-44.9); Hemoglobin 9.2 g/dL (11.5-15.4); Mean Corpuscular HGB Conc 30.9 g/dL (31.6-35.5); Mean Corpuscular Hemoglobin 27.6 pg (28.0-33.3); Mean Corpuscular Volume 89.5 fL (83.0-100.0); Mean Platelet Volume 10.2 fL (9.4-12.4); Platelet Count 138 K/mcL (140-400); Red Blood Count 3.33 M/mcL (3.82-4.97); Red Cell Distribution Width 15.2 % (11.5-14.5)
[2017-03-25 05:15] LABS: BUN/Creatinine Ratio 25 (6-26); Blood Urea Nitrogen 19 mg/dL (7-20); Carbon Dioxide 21 mEq/L (19-29); Chloride 111 mEq/L (98-109); Glucose 144 mg/dL (70-99); Osmolality,Calculated 289 (280-300); Sodium 137 mEq/L (136-145); eGFR For African Americans > 60 (> 60); eGFR For Non-African Americans > 60 (> 60)
[2017-03-25] MEDS: *HR* Heparin 5,000 UNIT/ML VIAL SQ SCH (05:46)
[2017-03-25] MEDS ORDERED: Cholecalciferol (D-3) 1,000 UNIT TABLET PO SCH (09:00)
[2017-03-25] MEDS ORDERED: Ketorolac 30 MG/ML VIAL IVP PRN (09:38)
[2017-03-25] MEDS: Aspirin Enteric Coated 81 MG Tablet PO SCH (09:41)
[2017-03-25] MEDS: Cholecalciferol (D-3) 1,000 UNIT TABLET PO SCH (09:41)
[2017-03-25] MEDS: Pantoprazole 40 MG VIAL IVP SCH (09:44)
--- NOTE | 2017-03-25 09:56 | Internal Med Progress Note ---
Date of Encounter: 03/25/17 Time of Encounter: 09:54 - Assessment and plan (1) Fracture of right hip Current Visit: Yes Status: Acute Assessment and plan: Displaced right femoral neck fracture s/p Hemiarthroplasty right hip and Abductor tendon repair Hemiarthroplasty performed by Dr. Calderon on 03/24/17 Toradol PRN morphine as needed if BP improves Qualifiers: Encounter type: initial encounter Fracture type: closed Qualified Code(s) : S72.001A - Fracture of unspecified part of neck of right femur, initial encounter for closed fracture (2) Hypotension Current Visit: Yes Status: Acute Assessment and plan: possibly form blood loss monitor cbc, give bolus and continue IVF Qualifiers: Hypotension type: postprocedural hypotension Qualified Code(s): I95.81 - Postprocedural hypotension (3) Acute blood loss as cause of postoperative anemia Current Visit: Yes Status: Acute Assessment and plan: likely due to recent surgery consider transfusion monitor CBC PRotonix IV ( no BMs) consider CT scan if hematoma is suspected give 500 cc NS bolus and continue hydration (4) Hypokalemia Current Visit: Yes Status: Acute Assessment and plan: repleted (5) Osteoporosis Current Visit: Yes Status: Acute Assessment and plan: Continue raloxifene and calcium supplements with vitamin D Qualifiers: Osteoporosis type: age-related Presence of current pathological fracture: unspecified Qualified Code(s): M81.0 - Age-related osteoporosis without current pathological fracture (6) Pain Current Visit: Yes Status: Acute (7) HLD (hyperlipidemia) Current Visit: Yes Status: Chronic Assessment and plan: Continue Lipitor Qualifiers: Hyperlipidemia type: pure hypercholesterolemia Qualified Code(s): E78.00 - Pure hypercholesterolemia, unspecified; E78.0 - Pure hypercholesterolemia - Subjective Interval history: Complaints of severe hip pain 10 out of 10, denies any chest pain, shortness of breath, no abdominal pain, no dysuria. No diarrhea - Constitutional Vitals: Temp Pulse Resp BP Pulse Ox 99.2 F 111 18 86/57 98 03/25/17 07:02 03/25/17 08:30 03/25/17 07:02 03/25/17 07:02 03/25/17 08:30 General appearance: Present: cooperative, mild distress, A&O X 3, pleasant, answers questions appropriately - Head Head exam: Present: atraumatic, normocephalic - Eye Eye exam: Present: PERRL, conjuntiva pink, sclera anicteric Pupils: Present: PERRL - Neck Neck exam general surgery: Present: supple, trachea midline. Absent: lymphadenopathy - Respiratory Respiratory exam: Present: decreased breath sounds, CTAB. Absent: accessory muscle use, rales, rhonchi, wheezes - Cardiovascular Cardiovascular exam: Present: RRR, +S1, +S2. Absent: diastolic murmur, gallop, rubs, systolic murmur - GI/Abdominal GI/Abdominal exam: Present: normal bowel sounds, soft, no peritoneal signs. Absent: distended, tenderness - Extremities Exam Extremities exam: Present: warm, radial pulses palpable and symmetrical. Absent : calf tenderness, cyanotic, pedal edema - Neurological Exam Neurological exam: Present: CN II-XII intact, oriented X3, no focal deficits. Absent: pronater drift, facial droop, speech deficit - Skin Skin exam: Present: dry. Absent: intact Additional comments: Right hip surgical wound without signs of infection or hematoma Internal Medicine: Result - Labs CBC & Chem 7: 03/25/17 04:18 03/25/17 04:18 Labs: Short CBC 03/24/17 03/25/17 Range/Units 20:53 04:18 WBC 13.1 H 12.2 H (4.3-11.1) K/mcL Hgb 10.4 L 9.2 L (11.5-15.4) g/dL Hct 33.5 L 29.8 L (35.3-44.9) % Plt Count 172 138 L (140-400) K/mcL Neutrophils # 11.0 H (1.6-8.9) K/mcL BMP 03/24/17 03/25/17 20:53 04:18 Sodium 139 137 Potassium 4.2 4.0 Chloride 110 H 111 H Carbon Dioxide 23 21 BUN 17 19 Creatinine 0.79 0.75 Glucose 167 H 144 H Calcium 8.3 L 8.0 L - ABG Interpretation ABG results: PT/INR, D-dimer PT 11.8 Seconds (9.4-12.1) 03/24/17 01:10 - Impressions Impressions Hip X-Ray 03/24/17 14:43 IMPRESSION: 1. Status post uncomplicated right hip arthroplasty. D/ / Kedar Bah MD / Kedar Bah MD Interpreting Provider: Kedar Bah MD - VTE Documentation of Mechanical Device: Intermittent pneumatic compression device Consult Discharge Plan - Plan Referrals: Andrea Stuart MD [Primary Care Provider] -
--- NOTE | 2017-03-25 14:04 | Orthopedics Progress Note ---
Date of Encounter: 03/25/17 Time of Encounter: 14:02 Subjective Principal diagnosis: Right femoral neck fracture Interval history: 03/25/2017. Patient is postop day #1 from a cemented hemiarthroplasty of the right hip, this also included abductor repair. She is not in any pain while sitting or lying still. She appears to be somewhat sedate. Vital signs are stable. Patient is afebrile. Dressings are clean and dry. Hemoglobin is 9.2. Platelet count is slightly down at 138. Impression: POD #1 hemiarthroplasty with abductor repair right hip Recommendation: Would avoid transfusion unless absolutely indicated. Anticipate fluid shifts postop. We will recheck labs in a.m. Continue with PT and OT and ambulation. director of student financial services for discharge planning. Orthopedic status is stable. Objective Vital signs: Vital Signs Temp Pulse Resp BP Pulse Ox 03/25/17 11:26 98.7 F 123 20 89/59 97 03/25/17 09:50 98 03/25/17 08:30 111 98 03/25/17 07:02 99.2 F 105 18 86/57 97 03/25/17 03:50 98.8 F 103 16 94/63 97 03/25/17 00:00 98.6 F 110 15 90/60 95 03/24/17 20:36 98.9 F 114 15 108/62 96 03/24/17 18:15 98.8 F 114 18 83/55 95 03/24/17 17:27 98.9 F 114 18 92/57 96 03/24/17 16:50 116 92/58 95 03/24/17 15:52 97.8 F 109 18 96/59 95 03/24/17 15:16 98.7 F 104 16 99/65 93 03/24/17 14:45 97.7 F 104 16 99/67 93 03/24/17 14:30 98.4 F 104/64 03/24/17 14:24 96 16 98/67 93 03/24/17 14:14 98.9 F 98 18 90/60 93 03/24/17 14:04 99 20 92 Intake and Output 03/24/17 03/25/17 03/25/17 23:59 07:59 15:59 Intake Total 105 / 105 1000 / 1000 5110 / 5110 Output Total 20 / 20 Balance 105 / 105 980 / 980 5110 / 5110 Intake: IV Fluids 105 / 105 4990 / 4990 KCl 10 MEQ In 0.9 % 5 / 5 1005 / 1005 Sodium Chloride 1,000 ML @ 125 mls/hr IVC .Q8H3M [facility] Rx#:[id number] Ancef 2,000 MG In 100 / 100 100 / 100 Dextrose 5% 100 ML @ 200 mls/hr IVPB Q8HR [facility] Rx#: [id number] Oral 1000 / 1000 120 / 120 Output: Catheter Other: Meal Breakfast Percent of Meal Consumed 10% Weight 68.2 kg Patient Weight 03/25/17 23:59 Weight 68.2 kg - Labs CBC & BMP: 03/25/17 04:18 03/25/17 04:18 Labs: Abnormal lab results WBC 12.2 K/mcL (4.3-11.1) H 03/25/17 04:18 RBC 3.33 M/mcL (3.82-4.97) L 03/25/17 04:18 Hgb 9.2 g/dL (11.5-15.4) L 03/25/17 04:18 Hct 29.8 % (35.3-44.9) L 03/25/17 04:18 MCH 27.6 pg (28.0-33.3) L 03/25/17 04:18 MCHC 30.9 g/dL (31.6-35.5) L 03/25/17 04:18 RDW 15.2 % (11.5-14.5) H 03/25/17 04:18 Plt Count 138 K/mcL (140-400) L 03/25/17 04:18 Neutrophils # 11.0 K/mcL (1.6-8.9) H 03/24/17 20:53 APTT 25.7 Seconds (26.0-36.0) L 03/24/17 01:10 Chloride 111 mEq/L (98-109) H 03/25/17 04:18 Glucose 144 mg/dL (70-99) H 03/25/17 04:18 Calcium 8.0 mg/dL (8.6-10.8) L 03/25/17 04:18 Urine Ketones 15 mg/dL (Negative) H 03/23/17 19:40 - VTE Documentation of Mechanical Device: Intermittent pneumatic compression device Consult Discharge Plan - Plan Referrals: Andrea Stuart MD [Primary Care Provider] -
[2017-03-25] MEDS ORDERED: 0.9 % Sodium Chloride 500 ML ONE (15:37)
[2017-03-25 15:45] LABS: Hemoglobin 8.7 g/dL (11.5-15.4)
[2017-03-25] MEDS ORDERED: 0.9 % Sodium Chloride 1,000 ML ONE (15:45)
[2017-03-25] MEDS ORDERED: 0.9 % Sodium Chloride 500 ML IVC ONE (16:00)
--- NOTE | 2017-03-25 16:45 | Electrocardiograph Report ---
[address] [address] Test Date: 2017-03-23 Pat Name: Adela Lroedo Department: 0 Room: [facility] Gender: F Client Support Analyst: : [id number] Requested By: Daniel Preciado Order Number: [id number] Reading MD: Steve Gambino MD Measurements Intervals [place] Rate: 81 P: 78 MI: 197 QRS: -56 QRSD: 109 T: 95 QT: 367 QTc: 404 Interpretive Statements SINUS RHYTHM WITH SINUS ARRHYTHMIA LEFT ANTERIOR FASCICULAR BLOCK BASELINE ARTIFACT Electronically Signed On 03-25-2017 16:43:46 EDT by Steve Gambino MD
[2017-03-25] MEDS ORDERED: 0.9 % Sodium Chloride 250 ML ONE (18:29)
[2017-03-25] MEDS: Latanoprost 2.5 ML BOTTLE RIGHT EYE SCH (18:51)
[2017-03-25] MEDS: Brinzolamide 1% 10 ML BOTTLE BOTH EYES SCH (18:51)
[2017-03-25 23:17] LABS: Hematocrit 30.6 % (35.3-44.9); Hemoglobin 9.7 g/dL (11.5-15.4)
[2017-03-26] MEDS: 0.9 % Sodium Chloride 1,000 ML IVC SCH ×3 (02:17→19:10)
[2017-03-26 05:50] LABS: Hematocrit 29.4 % (35.3-44.9); Hemoglobin 9.3 g/dL (11.5-15.4); Mean Corpuscular HGB Conc 31.6 g/dL (31.6-35.5); Mean Corpuscular Hemoglobin 28.5 pg (28.0-33.3); Mean Corpuscular Volume 90.2 fL (83.0-100.0); Mean Platelet Volume 10.2 fL (9.4-12.4); Platelet Count 108 K/mcL (140-400); Red Blood Count 3.26 M/mcL (3.82-4.97); Red Cell Distribution Width 15.1 % (11.5-14.5)
[2017-03-26 06:05] LABS: BUN/Creatinine Ratio 36 (6-26); Blood Urea Nitrogen 26 mg/dL (7-20); Calcium 8.2 mg/dL (8.6-10.8); Carbon Dioxide 23 mEq/L (19-29); Chloride 113 mEq/L (98-109); Glucose 113 mg/dL (70-99); Osmolality,Calculated 294 (280-300); Potassium 4.3 mEq/L (3.5-4.5); Sodium 139 mEq/L (136-145); eGFR For African Americans > 60 (> 60); eGFR For Non-African Americans > 60 (> 60)
[2017-03-26] MEDS: Cholecalciferol (D-3) 1,000 UNIT TABLET PO SCH (09:39)
[2017-03-26] MEDS: Pantoprazole 40 MG VIAL IVP SCH (09:39)
[2017-03-26] MEDS: Brinzolamide 1% 10 ML BOTTLE BOTH EYES SCH ×2 (09:40→22:11)
[2017-03-26] MEDS: Latanoprost 2.5 ML BOTTLE RIGHT EYE SCH ×2 (09:40→22:26)
--- NOTE | 2017-03-26 10:36 | Internal Med Progress Note ---
<Osbaldo Villalta - Last Filed: 03/26/17 10:34> Date of Encounter: 03/26/17 Time of Encounter: 10:34 - Assessment and plan (1) Fracture of right hip Current Visit: Yes Status: Acute Assessment and plan: Displaced right femoral neck fracture s/p Hemiarthroplasty right hip and Abductor tendon repair Hemiarthroplasty performed by Dr. Calderon on 03/24/17 continue Toradol PRN continue morphine as needed if BP improves Qualifiers: Encounter type: initial encounter Fracture type: closed Qualified Code(s) : S72.001A - Fracture of unspecified part of neck of right femur, initial encounter for closed fracture (2) Hypotension Current Visit: Yes Status: Acute Assessment and plan: possibly form blood loss, possibly from third spacing 2/2 surgery. patient received 1 unit of PRBC monitor cbc, continue IVF Pts BPs have been in the 80s/50s at times, most recent BP 122/83 Qualifiers: Hypotension type: postprocedural hypotension Qualified Code(s): I95.81 - Postprocedural hypotension (3) Acute blood loss as cause of postoperative anemia Current Visit: Yes Status: Acute Assessment and plan: likely 2/2 recent surgery patient was tranfused 1 unit last night. CBC went from 8.7 to 9.7 post transfusion, back down to 9.[address] scan Abd Pelvis to check for Hematoma pending continue to monitor CBC PRotonix IV ( no BMs) Continue IV fluids. (4) Pain Current Visit: Yes Status: Acute Assessment and plan: 2/2 Hip Fx, surgically repaired. Continue toradol Morphine once BP stabilizes. (5) HLD (hyperlipidemia) Current Visit: Yes Status: Chronic Assessment and plan: Chronic, Stable Lipid Panne showed: Cholesterol 154, DL 90, VLDL 13, HDL 51, Triglycerides 64 Continue Lipitor Qualifiers: Hyperlipidemia type: pure hypercholesterolemia Qualified Code(s): E78.00 - Pure hypercholesterolemia, unspecified; E78.0 - Pure hypercholesterolemia (6) Hypokalemia Current Visit: Yes Status: Acute Assessment and plan: Hypokalemic 3.4 on 03/24 repleted stable since (7) Osteoporosis Current Visit: Yes Status: Acute Assessment and plan: Chronic Continue raloxifene, calcium, and vitamin D Qualifiers: Osteoporosis type: age-related Presence of current pathological fracture: unspecified Qualified Code(s): M81.0 - Age-related osteoporosis without current pathological fracture - Subjective Interval history: Patient resting in bed. Patient reports continued R hip pn POD #2. atient denies CP, SOB, Hemoptysis, Hematochezia, hematuria. - Constitutional Vitals: Temp Pulse Resp BP Pulse Ox 98.8 F 100 16 122/83 97 03/26/17 06:52 03/26/17 06:52 03/26/17 06:52 03/26/17 06:52 03/26/17 06:52 General appearance: Present: cooperative, mild distress, A&O X 3, pleasant, answers questions appropriately - Head Head exam: Present: atraumatic, normocephalic - Eye Eye exam: Present: sclera anicteric - Neck Neck exam general surgery: Present: supple, trachea midline - Respiratory Respiratory exam: Present: decreased breath sounds, CTAB. Absent: rales, rhonchi, wheezes - Cardiovascular Cardiovascular exam: Present: RRR, +S1, +S2. Absent: diastolic murmur, gallop, rubs, systolic murmur - GI/Abdominal GI/Abdominal exam: Present: normal bowel sounds, soft. Absent: tenderness - Extremities Exam Extremities exam: Absent: calf tenderness, cyanotic, pedal edema - Neurological Exam Neurological exam: Present: alert, oriented X3. Absent: facial droop, speech deficit - Psychiatric Psychiatric exam: Present: normal affect, normal mood - Skin Skin exam: Present: dry, warm Internal Medicine: Result - Labs CBC & Chem 7: 03/26/17 05:39 03/26/17 05:39 Labs: Short CBC 03/25/17 03/25/17 03/26/17 Range/Units 15:38 22:58 05:39 WBC 10.2 (4.3-11.1) K/mcL Hgb 8.7 L 9.7 L 9.3 L (11.5-15.4) g/dL Hct 28.0 L 30.6 L 29.4 L (35.3-44.9) % Plt Count 108 L (140-400) K/mcL BMP 03/26/17 05:39 Sodium 139 Potassium 4.3 Chloride 113 H Carbon Dioxide 23 BUN 26 H Creatinine 0.73 Glucose 113 H Calcium 8.2 L - ABG Interpretation ABG results: PT/INR, D-dimer PT 11.8 Seconds (9.4-12.1) 03/24/17 01:10 - VTE Documentation of Mechanical Device: Intermittent pneumatic compression device Consult Discharge Plan - Plan Referrals: Andrea Stuart MD [Primary Care Provider] - <Zach Juarez - Last Filed: 03/26/17 13:33> Date of Encounter: 03/26/17 - Assessment and plan (1) Fracture of right hip Current Visit: Yes Status: Acute Qualifiers: Encounter type: initial encounter Fracture type: closed Qualified Code(s) : S72.001A - Fracture of unspecified part of neck of right femur, initial encounter for closed fracture (2) Hypotension Current Visit: Yes Status: Acute Qualifiers: Hypotension type: postprocedural hypotension Qualified Code(s): I95.81 - Postprocedural hypotension (3) Acute blood loss as cause of postoperative anemia Current Visit: Yes Status: Acute (4) Hypokalemia Current Visit: Yes Status: Acute (5) Osteoporosis Current Visit: Yes Status: Acute Qualifiers: Osteoporosis type: age-related Presence of current pathological fracture: unspecified Qualified Code(s): M81.0 - Age-related osteoporosis without current pathological fracture (6) Pain Current Visit: Yes Status: Acute (7) HLD (hyperlipidemia) Current Visit: Yes Status: Chronic Qualifiers: Hyperlipidemia type: pure hypercholesterolemia Qualified Code(s): E78.00 - Pure hypercholesterolemia, unspecified; E78.0 - Pure hypercholesterolemia - Constitutional Vitals: Temp Pulse Resp BP Pulse Ox 98.1 F 89 16 114/77 98 03/26/17 11:21 03/26/17 11:21 03/26/17 11:21 03/26/17 11:21 03/26/17 11:21 Internal Medicine: Result - Labs CBC & Chem 7: 03/26/17 05:39 03/26/17 05:39 Labs: Short CBC 03/25/17 03/25/17 03/26/17 Range/Units 15:38 22:58 05:39 WBC 10.2 (4.3-11.1) K/mcL Hgb 8.7 L 9.7 L 9.3 L (11.5-15.4) g/dL Hct 28.0 L 30.6 L 29.4 L (35.3-44.9) % Plt Count 108 L (140-400) K/mcL BMP 03/26/17 05:39 Sodium 139 Potassium 4.3 Chloride 113 H Carbon Dioxide 23 BUN 26 H Creatinine 0.73 Glucose 113 H Calcium 8.2 L - ABG Interpretation ABG results: PT/INR, D-dimer PT 11.8 Seconds (9.4-12.1) 03/24/17 01:10 - Impressions Impressions Abdomen/Pelvis CT 03/26/17 10:12 IMPRESSION: 1. No hematoma is demonstrated 2. Small bowel and colonic diverticulosis 3. Small amount of free fluid in the pelvis 4. Small bilateral pleural effusions D/ / Ki Hough MD / Ki Hough MD Interpreting Provider: Ki Hough MD - Attending Attestation Acute blood loss postoperative anemia received 1 Unit of RBCs Hb stable. Consider Discharge if stable CT of the abdomen and pelvis did not show any hematoma. I examined this patient and my medical decision-making was reviewed with the Resident Physician. I agree with the documented findings, disposition and treatment plan as described except to the extent set forth below.
[2017-03-26] MEDS: *HR* Heparin 5,000 UNIT/ML VIAL SQ SCH ×2 (14:32→22:12)
[2017-03-26] MEDS: Acetaminophen 325 MG TABLET PO PRN (19:03)
--- NOTE | 2017-03-26 20:22 | Orthopedics Progress Note ---
Date of Encounter: 03/26/17 Time of Encounter: 20:20 Subjective Principal diagnosis: Right femoral neck fracture Interval history: 03/25/2017. Patient is postop day #1 from a cemented hemiarthroplasty of the right hip, this also included abductor repair. She is not in any pain while sitting or lying still. She appears to be somewhat sedate. Vital signs are stable. Patient is afebrile. Dressings are clean and dry. Hemoglobin is 9.2. Platelet count is slightly down at 138. Impression: POD #1 hemiarthroplasty with abductor repair right hip Recommendation: Would avoid transfusion unless absolutely indicated. Anticipate fluid shifts postop. We will recheck labs in a.m. Continue with PT and OT and ambulation. health services director for discharge planning. Orthopedic status is stable. 03/26/2017. POD #2 hemiarthroplasty right hip. Patient is very immobile thus far. Denies pain while lying in bed. Vital signs are stable. Patient is afebrile. Dressings remain dry. Hemoglobin is 9.3. Impression: POD #2 right hip hemiarthroplasty with abductor tendon repair Recommendation: Would continue with ambulation training. health services director working on discharge planning. Agree with short-term rehabilitation stay upon discharge. Objective Vital signs: Vital Signs Temp Pulse Resp BP Pulse Ox 03/26/17 19:41 98.5 F 105 17 105/72 99 03/26/17 15:20 99.2 F 86 16 115/80 99 03/26/17 11:21 98.1 F 89 16 114/77 98 03/26/17 06:52 98.8 F 100 16 122/83 97 03/26/17 03:54 98.5 F 101 15 88/65 98 03/25/17 23:47 98.3 F 91 15 85/65 98 03/25/17 21:55 98.8 F 100 19 105/69 98 Intake and Output 03/26/17 03/26/17 03/26/17 07:59 15:59 23:59 Intake Total 1200 / 1200 1000 / 1000 Balance 1200 / 1200 1000 / 1000 Intake: IV Fluids 1000 / 1000 1000 / 1000 0.9 % Sodium Chloride 1, 1000 / 1000 1000 / 1000 000 ML @ 150 mls/hr IVC . Q6H40M [facility] Rx#:[id number] Oral 200 / 200 Other: Meal Breakfast Percent of Meal Consumed 10% # Urine Diapers 1 1 1 Weight 68 kg Patient Weight 03/26/17 23:59 Weight 68 kg - Labs CBC & BMP: 03/26/17 05:39 03/26/17 05:39 Labs: Abnormal lab results RBC 3.26 M/mcL (3.82-4.97) L 03/26/17 05:39 Hgb 9.3 g/dL (11.5-15.4) L 03/26/17 05:39 Hct 29.4 % (35.3-44.9) L 03/26/17 05:39 RDW 15.1 % (11.5-14.5) H 03/26/17 05:39 Plt Count 108 K/mcL (140-400) L 03/26/17 05:39 Neutrophils # 11.0 K/mcL (1.6-8.9) H 03/24/17 20:53 APTT 25.7 Seconds (26.0-36.0) L 03/24/17 01:10 Chloride 113 mEq/L (98-109) H 03/26/17 05:39 BUN 26 mg/dL (7-20) H 03/26/17 05:39 BUN/Creatinine Ratio 36 (6-26) H 03/26/17 05:39 Glucose 113 mg/dL (70-99) H 03/26/17 05:39 Calcium 8.2 mg/dL (8.6-10.8) L 03/26/17 05:39 Urine Ketones 15 mg/dL (Negative) H 03/23/17 19:40 - VTE Documentation of Mechanical Device: Intermittent pneumatic compression device Consult Discharge Plan - Plan Referrals: Andrea Stuart MD [Primary Care Provider] -
[2017-03-26] MEDS: Sennosides 8.6 MG TABLET PO SCH (22:04)
[2017-03-27] MEDS: 0.9 % Sodium Chloride 1,000 ML IVC SCH (02:01)
[2017-03-27] MEDS: *HR* Heparin 5,000 UNIT/ML VIAL SQ SCH ×3 (05:30→21:51)
[2017-03-27 06:58] LABS: Hematocrit 28.1 % (35.3-44.9); Hemoglobin 8.9 g/dL (11.5-15.4); Mean Corpuscular HGB Conc 31.7 g/dL (31.6-35.5); Mean Corpuscular Hemoglobin 28.3 pg (28.0-33.3); Mean Corpuscular Volume 89.5 fL (83.0-100.0); Mean Platelet Volume 10.7 fL (9.4-12.4); Platelet Count 132 K/mcL (140-400); Red Blood Count 3.14 M/mcL (3.82-4.97); Red Cell Distribution Width 15.3 % (11.5-14.5)
[2017-03-27 07:00] LABS: BUN/Creatinine Ratio 42 (6-26); Blood Urea Nitrogen 23 mg/dL (7-20); Calcium 7.9 mg/dL (8.6-10.8); Carbon Dioxide 21 mEq/L (19-29); Chloride 114 mEq/L (98-109); Glucose 107 mg/dL (70-99); Osmolality,Calculated 292 (280-300); Potassium 3.6 mEq/L (3.5-4.5); Sodium 139 mEq/L (136-145); eGFR For African Americans > 60 (> 60); eGFR For Non-African Americans > 60 (> 60)
[2017-03-27] MEDS: Pantoprazole 40 MG VIAL IVP SCH (08:55)
[2017-03-27] MEDS: Brinzolamide 1% 10 ML BOTTLE BOTH EYES SCH ×2 (09:03→21:50)
[2017-03-27] MEDS: Cholecalciferol (D-3) 1,000 UNIT TABLET PO SCH (09:05)
[2017-03-27] MEDS: Latanoprost 2.5 ML BOTTLE RIGHT EYE SCH ×2 (09:06→21:51)
--- NOTE | 2017-03-27 17:18 | Internal Med Progress Note ---
Date of Encounter: 03/27/17 Time of Encounter: 09:20 - Assessment and plan (1) Fracture of right hip Current Visit: Yes Status: Acute Assessment and plan: Status post right hip hemiarthroplasty and abductor tendon repair. Awaiting placement to skilled rehabilitation. Doing well post surgery. Continue physical therapy. DVT prophylaxis with subcutaneous heparin Qualifiers: Encounter type: initial encounter Fracture type: closed Qualified Code(s) : S72.001A - Fracture of unspecified part of neck of right femur, initial encounter for closed fracture (2) HLD (hyperlipidemia) Current Visit: Yes Status: Chronic Assessment and plan: Continue Lipitor Qualifiers: Hyperlipidemia type: pure hypercholesterolemia Qualified Code(s): E78.00 - Pure hypercholesterolemia, unspecified; E78.0 - Pure hypercholesterolemia (3) HTN (hypertension) Current Visit: Yes Status: Chronic Assessment and plan: Well-controlled Qualifiers: Hypertension type: essential hypertension Qualified Code(s): I10 - Essential (primary) hypertension (4) Hypokalemia Current Visit: Yes Status: Resolved (5) Osteoporosis Current Visit: Yes Status: Chronic Assessment and plan: Supportive care. Pain control. Continue Evista Qualifiers: Osteoporosis type: age-related Presence of current pathological fracture: unspecified Qualified Code(s): M81.0 - Age-related osteoporosis without current pathological fracture (6) Acute blood loss as cause of postoperative anemia Current Visit: Yes Status: Acute Assessment and plan: Hemoglobin 8.9 today. We will continue to monitor blood counts. (7) Hypotension Current Visit: Yes Status: Resolved Qualifiers: Hypotension type: postprocedural hypotension Qualified Code(s): I95.81 - Postprocedural hypotension - Subjective Interval history: Patient is sitting up in chair. Family is at bedside. Pain is well controlled as long as she does not move. She does require pain medications especially after working with physical therapy. Denies any other complaints at this time. - Constitutional Vitals: Temp Pulse Resp BP Pulse Ox 99.4 F 97 19 125/77 93 03/27/17 15:16 03/27/17 15:16 03/27/17 15:16 03/27/17 15:16 03/27/17 15:16 General appearance: Present: cooperative, mild distress, A&O X 3, pleasant, answers questions appropriately - Respiratory Respiratory exam: Present: CTAB. Absent: accessory muscle use, rales, rhonchi, wheezes - Cardiovascular Cardiovascular exam: Present: RRR, +S1, +S2. Absent: diastolic murmur, gallop, rubs, systolic murmur - GI/Abdominal GI/Abdominal exam: Present: normal bowel sounds, soft, no peritoneal signs. Absent: distended, tenderness - Extremities Exam Extremities exam: Present: tenderness (Right hip region), warm, radial pulses palpable and symmetrical. Absent: calf tenderness, cyanotic, pedal edema Internal Medicine: Result - Labs CBC & Chem 7: 03/27/17 06:02 03/27/17 06:02 Labs: Short CBC 03/27/17 Range/Units 06:02 WBC 8.4 (4.3-11.1) K/mcL Hgb 8.9 L (11.5-15.4) g/dL Hct 28.1 L (35.3-44.9) % Plt Count 132 L (140-400) K/mcL BMP 03/27/17 06:02 Sodium 139 Potassium 3.6 Chloride 114 H Carbon Dioxide 21 BUN 23 H Creatinine 0.55 L Glucose 107 H Calcium 7.9 L - ABG Interpretation ABG results: PT/INR, D-dimer PT 11.8 Seconds (9.4-12.1) 03/24/17 01:10 - VTE Documentation of Mechanical Device: Intermittent pneumatic compression device Consult Discharge Plan - Plan Referrals: Andrea Stuart MD [Primary Care Provider] -
--- NOTE | 2017-03-27 19:18 | Orthopedics Progress Note ---
Date of Encounter: 03/27/17 Time of Encounter: 19:16 Subjective Principal diagnosis: Right femoral neck fracture Interval history: 03/25/2017. Patient is postop day #1 from a cemented hemiarthroplasty of the right hip, this also included abductor repair. She is not in any pain while sitting or lying still. She appears to be somewhat sedate. Vital signs are stable. Patient is afebrile. Dressings are clean and dry. Hemoglobin is 9.2. Platelet count is slightly down at 138. Impression: POD #1 hemiarthroplasty with abductor repair right hip Recommendation: Would avoid transfusion unless absolutely indicated. Anticipate fluid shifts postop. We will recheck labs in a.m. Continue with PT and OT and ambulation. manager financial services for discharge planning. Orthopedic status is stable. 03/26/2017. POD #2 hemiarthroplasty right hip. Patient is very immobile thus far. Denies pain while lying in bed. Vital signs are stable. Patient is afebrile. Dressings remain dry. Hemoglobin is 9.3. Impression: POD #2 right hip hemiarthroplasty with abductor tendon repair Recommendation: Would continue with ambulation training. manager financial services working on discharge planning. Agree with short-term rehabilitation stay upon discharge. 03/27/2017. Postop day #3 hemiarthroplasty right hip and abductor tendon repair. Patient making slow progress. Limited ambulation so far. But signs are stable. Patient is afebrile. Hemoglobin is 8.9 white blood cell count is normal. Platelets have risen to 132. Dressings remained dry. Neurovascular remained stable. Impression: POD #3 hemiarthroplasty right hip and abductor tendon repair Recommendation: Patient definitely needs short-term rehabilitation and is amenable to such. Awaiting final approval. As noted prior patient can be weightbearing as tolerated with total hip precautions followed. As always dressing is intact she can shower. No bathing or soaking. Will need follow-up with me in 2-3 weeks' time or sooner should any problems arise. Objective Vital signs: Vital Signs Temp Pulse Resp BP Pulse Ox 03/27/17 15:16 99.4 F 97 19 125/77 93 03/27/17 11:56 98.6 F 92 17 139/91 93 03/27/17 08:30 95 03/27/17 07:38 98.7 F 89 17 117/80 99 03/27/17 04:23 99.2 F 90 17 121/79 97 03/27/17 00:22 99.8 F H 100 17 133/90 96 03/26/17 20:00 99 03/26/17 19:41 98.5 F 105 17 105/72 99 Intake and Output 03/27/17 03/27/17 03/27/17 07:59 15:59 23:59 Intake Total 990 / 990 Output Total 100 / 100 Balance 890 / 890 Intake: IV Fluids 990 / 990 0.9 % Sodium Chloride 1, 990 / 990 000 ML @ 150 mls/hr IVC . Q6H40M [facility] Rx#:[id number] Output: Urine 100 / 100 Other: Meal No tray in room Stool Size Large Stool Consistency soft Stool Characteristics Normal for Patient Stool Color Brown # Urine Diapers 1 # Bowel Movements 1 # Bowel Movement Diapers 1 - Labs CBC & BMP: 03/27/17 06:02 03/27/17 06:02 Labs: Abnormal lab results RBC 3.14 M/mcL (3.82-4.97) L 03/27/17 06:02 Hgb 8.9 g/dL (11.5-15.4) L 03/27/17 06:02 Hct 28.1 % (35.3-44.9) L 03/27/17 06:02 RDW 15.3 % (11.5-14.5) H 03/27/17 06:02 Plt Count 132 K/mcL (140-400) L 03/27/17 06:02 Neutrophils # 11.0 K/mcL (1.6-8.9) H 03/24/17 20:53 APTT 25.7 Seconds (26.0-36.0) L 03/24/17 01:10 Chloride 114 mEq/L (98-109) H 03/27/17 06:02 BUN 23 mg/dL (7-20) H 03/27/17 06:02 Creatinine 0.55 mg/dL (0.57-1.11) L 03/27/17 06:02 BUN/Creatinine Ratio 42 (6-26) H 03/27/17 06:02 Glucose 107 mg/dL (70-99) H 03/27/17 06:02 Calcium 7.9 mg/dL (8.6-10.8) L 03/27/17 06:02 Urine Ketones 15 mg/dL (Negative) H 03/23/17 19:40 - VTE Documentation of Mechanical Device: Intermittent pneumatic compression device Consult Discharge Plan - Plan Referrals: Andrea Stuart MD [Primary Care Provider] -
[2017-03-27] MEDS: Sennosides 8.6 MG TABLET PO SCH (21:48)
[2017-03-28] MEDS: *HR* Heparin 5,000 UNIT/ML VIAL SQ SCH (06:13)
[2017-03-28 07:19] LABS: Hematocrit 28.6 % (35.3-44.9)
[2017-03-28] MEDS ORDERED: Aspirin Enteric Coated 81 MG Tablet PO SCH (09:00)
[2017-03-28] MEDS: Latanoprost 2.5 ML BOTTLE RIGHT EYE SCH (09:07)
[2017-03-28] MEDS: Cholecalciferol (D-3) 1,000 UNIT TABLET PO SCH (09:07)
[2017-03-28] MEDS: Pantoprazole 40 MG VIAL IVP SCH (09:08)
[2017-03-28] MEDS: Brinzolamide 1% 10 ML BOTTLE BOTH EYES SCH (09:08)
--- NOTE | 2017-03-28 10:19 | Discharge Summary ---
Date of Encounter: 03/28/17 Time of Encounter: 08:45 - Discharge Diagnosis (1) Fracture of right hip Priority: Primary Status: Acute Qualifiers: Encounter type: initial encounter Fracture type: closed Qualified Code(s) : S72.001A - Fracture of unspecified part of neck of right femur, initial encounter for closed fracture (2) HLD (hyperlipidemia) Priority: Secondary Status: Chronic Qualifiers: Hyperlipidemia type: pure hypercholesterolemia Qualified Code(s): E78.00 - Pure hypercholesterolemia, unspecified; E78.0 - Pure hypercholesterolemia (3) HTN (hypertension) Priority: Secondary Status: Chronic Qualifiers: Hypertension type: essential hypertension Qualified Code(s): I10 - Essential (primary) hypertension (4) Hypokalemia Priority: Secondary Status: Resolved (5) Osteoporosis Priority: Secondary Status: Chronic Qualifiers: Osteoporosis type: age-related Presence of current pathological fracture: unspecified Qualified Code(s): M81.0 - Age-related osteoporosis without current pathological fracture (6) Acute blood loss as cause of postoperative anemia Priority: Secondary Status: Acute (7) Hypotension Priority: Secondary Status: Resolved Qualifiers: Hypotension type: postprocedural hypotension Qualified Code(s): I95.81 - Postprocedural hypotension - Discharge Medications Prescriptions: HYDROcodone/Acet 5/325 mg [Petroleum 5-325 mg] 1 tab PO Q6HR PRN #10 tab PRN Reason: Moderate Pain (4-6) Acetaminophen 650 mg PO Q6H PRN #30 capsule PRN Reason: MILD Pain/fever Enoxaparin [Lovenox] 40 mg SQ DAILY #7 syr Home Medications: Atorvastatin Calcium 80 mg PO QPM 03/23/17 [History] Brinzolamide 1% [Azopt] 1 drop BOTH EYES QPM 03/23/17 [History] Latanoprost [Xalatan] 1 drop RIGHT EYE QPM 03/23/17 [History] Raloxifene [Evista] 60 mg PO QAM 03/23/17 [History] Sertraline [Zoloft] 100 mg PO QPM 03/23/17 [History] Acetaminophen 650 mg PO Q6H PRN #30 capsule 03/28/17 [Rx] Cholecalciferol (D-3) [Vitamin D] 1,000 unit PO DAILY tab 03/28/17 [Rx] Enoxaparin [Lovenox] 40 mg SQ DAILY #7 syr 03/28/17 [Rx] HYDROcodone/Acet 5/325 mg [Petroleum 5-325 mg] 1 tab PO Q6HR PRN #10 tab 03/28/17 [ Rx] Allergies/Adverse Reactions: 3 Allergy/AdvReac Type Severity Reaction Status Date / Time No Known Allergies Allergy Verified 03/23/17 13:44 Procedures/tests Complete & Pending: Procedures Performed prior 72 hours Category Date Time Status CT abd pelvis wo no iv no oral [CT] Stat Cat Scan 03/26/17 10:12 Completed Date of admission: 03/23/17 15:58 Primary care physician: Andrea Stuart MD Consults: 03/23/17 17:19 Consult to Physical Therapy [CONS] Routine Comment: Evaluate, develop and implement POC Reason for Consult: Patient fell today and has an acute traumatic displaced and angulated subcapital right remoral neck fracture. Will need rehabilitation services post-discharge. 03/23/17 17:20 Consult to Occupational Therapy [CONS] Routine Comment: Evaluate, develop and implement POC Reason for Consult: Patient fell today and has an acute traumatic displaced and angulated subcapital right remoral neck fracture. Will need rehabilitation services post-discharge. Consult to Dry Drug Worker [CONS] Routine Reason for SW Consult: Patient fell today and has an acute traumatic displaced and angulated subcapital right remoral neck fracture. Will need rehabilitation services post-discharge. 03/23/17 17:36 Consult to Orthopedic Surgery [CONS] Routine Consulting Provider: Orthopedic and Sports Medicine Reason for Consult: Patient has acute traumatic displaced and angulated subcapital right femoral neck fracture Call Completed: Yes Discharging clinician: Morenita Arango Anticipated date of discharge: 03/28/17 - Patient Status Disposition: Transfer SNF Condition: Good Functional capacity at discharge: independent ambulation Overall status at discharge: patient is progressing back to baseline - Discharge Instructions Follow Up With: Andrea Stuart MD [Primary Care Provider] - Additional Instructions: Please report excessive redness, fever, chills, odor, or drainage to Dr. Calderon or return to ER. No bathing or soaking. If dressing is intact she may shower. Weight bearing as tolerated with assist. - Diet and Activity Activity: as per physical therapy Diet: low fat, low cholesterol, low salt diet Hospital course: Ms. Loredo is a 86 year old female patient with a history of a pretension, hyperlipidemia who was admitted here after a fall resulting in right-sided hip fracture involving the right femoral neck. Patient was evaluated by orthopedics and recommended surgery based on her functional capacity at baseline. Patient underwent surgery on 03/24/17 with hemiarthroplasty of the right hip and abductor tendon repair. Since then she was monitored closely in the hospital while she recovered. She was evaluated by physical therapy and recommended placement to skilled rehabilitation. She did develop hypotension and anemia post surgery which was believed to be due to blood loss. She received 1 unit packed red blood cell transfusion. Since then she has been doing well and her blood counts have remained stable. She has been cleared for discharge by orthopedics and patient [facility]. She will be discharged on anticoagulation with Lovenox for 7 more days. - Time Spent with Patient Total time spent providing and/or coordinating discharge services: Greater than 30 minutes (35 min) - Constitutional Vitals: Temp Pulse Resp BP Pulse Ox 99.3 F 75 18 146/72 99 03/28/17 06:53 03/28/17 06:53 03/28/17 06:53 03/28/17 06:53 03/28/17 09:29 General appearance: Present: cooperative, A&O X 3, pleasant, no acute distress, answers questions appropriately - Respiratory Respiratory exam: Present: CTAB. Absent: accessory muscle use, rales, rhonchi, wheezes - Cardiovascular Cardiovascular exam: Present: RRR, +S1, +S2. Absent: diastolic murmur, gallop, rubs, systolic murmur - Extremities Exam Extremities exam: Present: tenderness (right hip), warm, radial pulses palpable and symmetrical. Absent: calf tenderness, cyanotic, pedal edema - Neurological Exam Neurological exam: Present: alert, oriented X3, no focal deficits. Absent: facial droop, speech deficit - Skin Skin exam: Present: dry, intact - VTE Documentation of Mechanical Device: Intermittent pneumatic compression device
--- NOTE | 2017-03-28 10:24 | Physician Discharge Referral ---
[facility] Referral Info Provider in Charge after Transfer: PCP Institutional Level of Care: Skilled - Diagnosis (1) Fracture of right hip Priority: Primary Status: Acute (2) HLD (hyperlipidemia) Priority: Secondary Status: Chronic (3) HTN (hypertension) Priority: Secondary Status: Chronic (4) Hypokalemia Priority: Secondary Status: Resolved (5) Osteoporosis Priority: Secondary Status: Chronic (6) Acute blood loss as cause of postoperative anemia Priority: Secondary Status: Acute (7) Hypotension Priority: Secondary Status: Resolved Prognosis: Fair Aware of Diagnosis: Patient, Family Aware of Prognosis: Patient, Family - Transfer Medications Prescriptions: HYDROcodone/Acet 5/325 mg [Pepperell 5-325 mg] 1 tab PO Q6HR PRN #10 tab PRN Reason: Moderate Pain (4-6) Acetaminophen 650 mg PO Q6H PRN #30 capsule PRN Reason: MILD Pain/fever Enoxaparin [Lovenox] 40 mg SQ DAILY #7 syr Home Medications: Atorvastatin Calcium 80 mg PO QPM 03/23/17 [History] Brinzolamide 1% [Azopt] 1 drop BOTH EYES QPM 03/23/17 [History] Latanoprost [Xalatan] 1 drop RIGHT EYE QPM 03/23/17 [History] Raloxifene [Evista] 60 mg PO QAM 03/23/17 [History] Sertraline [Zoloft] 100 mg PO QPM 03/23/17 [History] Acetaminophen 650 mg PO Q6H PRN #30 capsule 03/28/17 [Rx] Cholecalciferol (D-3) [Vitamin D] 1,000 unit PO DAILY tab 03/28/17 [Rx] Enoxaparin [Lovenox] 40 mg SQ DAILY #7 syr 03/28/17 [Rx] HYDROcodone/Acet 5/325 mg [Pepperell 5-325 mg] 1 tab PO Q6HR PRN #10 tab 03/28/17 [ Rx] Allergies/Adverse Reactions: 3 Allergy/AdvReac Type Severity Reaction Status Date / Time No Known Allergies Allergy Verified 03/23/17 13:44 - Respiratory Orders Smoking Cessation: Smoking cessation has been advised. For more information, call the [employer] Tobacco Quit Line at 8-163-TGSJ-NOW. - Advance Directives Code Status: Full Code - Mobility Orders Ambulate (per PT) - Rehabiliation Orders Rehab Orders: Evaluation for Physical Therapy, Evaluation for Occupational Therapy CERTIFICATION: I certify that the transfer of the above named patient to an Extended Care Facility is necessary for the continuing treatment of the diagnosis listed. The above information is true and accurate reflection of patient's current condition. Confidential - Redisclosure prohibited without a patient's written consent.
[2017-03-28 10:54] VITALS: BP 135/88
== END 2017-03-28 12:48 | DRG 470 ==
LOC: EMEROO 13:42 → SUATTDRO 15:58 → 3ANU 15:58 → 3NENU 16:04
PROVIDERS: ADMIT Nurse Practitioner Family; ATTEND Internal Medicine

== ENCOUNTER 2020-08-09 11:23 | Inpatient (IN) ==
[2020-08-09 12:32] LABS: Basophils % 0.2 %; Eosinophils # 0.1 K/mcL (0.0-0.6); Eosinophils % 0.4 %; Hematocrit 46.3 % (35.3-44.9); Immature Granulocytes % 0.7 % (0-4); Lymphocytes # 1.1 K/mcL (0.6-4.6); Lymphocytes % 7.7 %; Mean Corpuscular HGB Conc 32.4 g/dL (31.6-35.5); Mean Corpuscular Hemoglobin 31.1 pg (28.0-33.3); Mean Corpuscular Volume 96.1 fL (83.0-100.0); Mean Platelet Volume 9.2 fL (9.4-12.4); Monocytes # 0.8 K/mcL (0.0-1.3); Neutrophils # 11.7 K/mcL (1.6-8.9); Platelet Count 227 K/mcL (140-400); Red Blood Count 4.82 M/mcL (3.82-4.97); Red Cell Distribution Width 13.1 % (11.5-14.5); White Blood Count 13.7 K/mcL (4.3-11.1)
[2020-08-09] MEDS ORDERED: Morphine Sulfate 2 MG/ML SYRINGE IVP ONE (12:37)
[2020-08-09 12:50] LABS: BUN/Creatinine Ratio 22 (6-26); Blood Urea Nitrogen 15 mg/dL (8-23); Calcium 9.2 mg/dL (8.6-10.3); Carbon Dioxide 23 mEq/L (23-29); Chloride 107 mEq/L (98-107); Glucose 102 mg/dL (70-105); Osmolality,Calculated 291 (280-300); Potassium 3.8 mEq/L (3.5-5.1); Sodium 140 mEq/L (136-145); eGFR For African Americans > 60 (> 60); eGFR For Non-African Americans > 60 (> 60)
[2020-08-09] MEDS ORDERED: *HR* HYDROmorphone (PF) 1 MG/ML SYRINGE IVP PRN (15:44)
[2020-08-09] MEDS ORDERED: Ondansetron 4 MG/2 ML VIAL IVP PRN (15:47)
[2020-08-09] MEDS ORDERED: Acetaminophen 325 MG TABLET PO PRN (15:47)
[2020-08-09] MEDS ORDERED: Naloxone 0.4 MG/ML INJ IVP PRN (15:47)
[2020-08-09 16:44] LABS: Influenza A PCR Negative (Negative); Influenza B PCR Negative (Negative); Resp. Syncytial Virus PCR Negative (Negative)
[2020-08-09] MEDS: 0.9 % Sodium Chloride 1,000 ML IVC SCH (17:27)
[2020-08-09] MEDS: tiZANidine 4 MG TABLET PO SCH ×2 (17:28→20:31)
[2020-08-09 17:29] LABS: SARS-CoV-2 by PCR (In House) Negative (Negative)
[2020-08-09 18:05] LABS: Bilirubin,Urine Negative (Negative); Blood,Urine Negative (Negative); Clarity,Urine Clear (Clear); Color,Urine Light-Yellow (Yellow); Glucose,Urine (UA) Normal (Normal); Ketones,Urine 60 mg/dL (Negative); Leukocyte Esterase,Urine Negative (Negative); Nitrite,Urine Negative (Negative); Protein,Urine Trace mg/dL (Neg-Trace); Specific Gravity,Urine 1.018 (1.010-1.025); Urobilinogen,Urine Normal (Normal)
[2020-08-09] MEDS: Brinzolamide 1% 10 ML BOTTLE BOTH EYES SCH (20:30)
[2020-08-09] MEDS ORDERED: Albumin 25% 25gram/100mL 25 GM/100 ML IV.SOLN IVPB ONE (22:57)
[2020-08-10] MEDS: 0.9 % Sodium Chloride 1,000 ML IVC SCH ×2 (04:27→22:33)
[2020-08-10 06:11] LABS: Hematocrit 40.3 % (35.3-44.9); Mean Corpuscular HGB Conc 32.5 g/dL (31.6-35.5); Mean Corpuscular Hemoglobin 31.4 pg (28.0-33.3); Mean Corpuscular Volume 96.6 fL (83.0-100.0); Mean Platelet Volume 9.7 fL (9.4-12.4); Platelet Count 194 K/mcL (140-400); Red Blood Count 4.17 M/mcL (3.82-4.97); White Blood Count 9.8 K/mcL (4.3-11.1)
[2020-08-10 06:12] LABS: Hemoglobin 13.1 g/dL (11.5-15.4)
[2020-08-10 06:16] LABS: INR 1.2; Prothrombin Time 13.5 Seconds (9.4-12.1)
[2020-08-10 06:18] LABS: Activated Partial Thrombo Time 27.2 Seconds (26.0-36.0)
[2020-08-10 06:32] LABS: Troponin I 0.06 ng/mL (< 0.04)
[2020-08-10 06:38] LABS: BUN/Creatinine Ratio 26 (6-26); Blood Urea Nitrogen 19 mg/dL (8-23); Calcium 8.9 mg/dL (8.6-10.3); Carbon Dioxide 23 mEq/L (23-29); Chloride 107 mEq/L (98-107); Chol/HDL Ratio 5.9 (0-4.9); Cholesterol 196 mg/dL (< 200); Glucose 107 mg/dL (70-105); HDL Cholesterol 33 mg/dL (40-59); LDL Cholesterol,Calculated 142 mg/dL (< 100); Osmolality,Calculated 291 (280-300); Potassium 3.6 mEq/L (3.5-5.1); Sodium 139 mEq/L (136-145); Triglycerides 104 mg/dL (< 150); eGFR For African Americans > 60 (> 60); eGFR For Non-African Americans > 60 (> 60)
[2020-08-10] MEDS: tiZANidine 4 MG TABLET PO SCH ×3 (08:40→21:11)
[2020-08-10] MEDS: Cholecalciferol (D-3) 1,000 UNIT (25MCG) TABLET PO SCH (08:48)
[2020-08-10] MEDS: Pyridoxine (B-6) 50 MG TABLET PO SCH (08:48)
[2020-08-10] MEDS: Cyanocobalamin (B-12) 1,000 MCG TABLET PO SCH (08:48)
[2020-08-10] MEDS: Brinzolamide 1% 10 ML BOTTLE BOTH EYES SCH ×2 (08:51→21:28)
[2020-08-10 09:22] LABS: Estimated Average Glucose 105 mg/dl; Hemoglobin A1C 5.3 %
[2020-08-10] MEDS ORDERED: Vancomycin 1,000 MG VIAL ONE ×2 (13:10→13:33)
[2020-08-10] MEDS ORDERED: Povidone-Iodine 45 ML, Sodium Chloride IRRigation 1,000 ML IR ONE (13:15)
[2020-08-10] MEDS ORDERED: TOTAL JOINT MIXTURE (100ML) INTRAART ONE (13:15)
[2020-08-10] MEDS ORDERED: Ondansetron 4 MG/2 ML VIAL ONE (13:16)
[2020-08-10] MEDS ORDERED: *HR* Rocuronium Bromide 50 MG/5 ML VIAL ONE (13:16)
[2020-08-10] MEDS ORDERED: Lidocaine HCL 4 ML Topical Solution (Laryng-O-Jet Kit Sterile Pak) TP ONE (13:16)
[2020-08-10] MEDS ORDERED: *HR* FentaNYL (PF) 100 MCG/2 ML VIAL ONE (13:16)
[2020-08-10] MEDS ORDERED: Lidocaine -MPF 2% 2 ML VIAL ONE (13:16)
[2020-08-10] MEDS ORDERED: *HR* Propofol 200 MG/20 ML VIAL IVP ONE (13:16)
[2020-08-10] MEDS ORDERED: EPHEDrine 50 MG/ML VIAL ONE (14:52)
[2020-08-10] MEDS ORDERED: *HR* HYDROMORPHONE 2 MG/ML VIAL ONE (15:49)
[2020-08-10] MEDS ORDERED: *HR* Heparin 5,000 UNIT/ML VIAL SQ SCH (18:00)
[2020-08-10] MEDS ORDERED: *HR* Promethazine 25 MG/ML VIAL IM PRN (18:02)
[2020-08-10] MEDS ORDERED: *HR* OxyCODONE Immed Rel 5 MG TABLET PO PRN (18:02)
[2020-08-10] MEDS ORDERED: Ringers Solution, Lactated 1,000 ML IVC SCH (18:15)
[2020-08-10] MEDS: Latanoprost 2.5 ML BOTTLE BOTH EYES SCH (18:18)
[2020-08-11] MEDS: CeFAZolin 2 GM/120 ML BAG IVPB SCH ×2 (00:34→08:13)
[2020-08-11 01:54] LABS: Basophils % 0.2 %; Eosinophils % 0.1 %; Hematocrit 35.1 % (35.3-44.9); Immature Granulocytes % 0.4 % (0-4); Lymphocytes # 0.7 K/mcL (0.6-4.6); Lymphocytes % 5.9 %; Mean Corpuscular HGB Conc 31.3 g/dL (31.6-35.5); Mean Corpuscular Hemoglobin 31.3 pg (28.0-33.3); Mean Platelet Volume 9.5 fL (9.4-12.4); Monocytes # 1.1 K/mcL (0.0-1.3); Monocytes % 9.5 %; Neutrophils # 9.8 K/mcL (1.6-8.9); Platelet Count 144 K/mcL (140-400); Red Blood Count 3.51 M/mcL (3.82-4.97); Red Cell Distribution Width 13.2 % (11.5-14.5); Segmented Neutrophils % 83.9 %; White Blood Count 11.6 K/mcL (4.3-11.1)
[2020-08-11 02:14] LABS: BUN/Creatinine Ratio 24 (6-26); Blood Urea Nitrogen 19 mg/dL (8-23); Carbon Dioxide 18 mEq/L (23-29); Chloride 113 mEq/L (98-107); Glucose 156 mg/dL (70-105); Osmolality,Calculated 293 (280-300); Sodium 139 mEq/L (136-145); eGFR For African Americans > 60 (> 60); eGFR For Non-African Americans > 60 (> 60)
[2020-08-11] MEDS ORDERED: 0.9 % Sodium Chloride 500 ML IVC ONE (03:31)
[2020-08-11] MEDS: 0.9 % Sodium Chloride 1,000 ML IVC SCH ×2 (07:58→16:45)
[2020-08-11] MEDS: Cyanocobalamin (B-12) 1,000 MCG TABLET PO SCH (08:03)
[2020-08-11] MEDS: Ascorbic Acid 500 MG TABLET PO SCH ×2 (08:03→16:26)
[2020-08-11] MEDS: Pyridoxine (B-6) 50 MG TABLET PO SCH (08:03)
[2020-08-11] MEDS: Cholecalciferol (D-3) 1,000 UNIT (25MCG) TABLET PO SCH (08:03)
[2020-08-11] MEDS: tiZANidine 4 MG TABLET PO SCH (08:03)
[2020-08-11] MEDS: Multivit/Ca/Min/Fe/FA 1 TAB TABLET PO SCH (08:03)
[2020-08-11] MEDS ORDERED: 0.9 % Sodium Chloride 250 ML IV ONE (09:45)
[2020-08-11 10:13] LABS: Hematocrit 31.4 % (35.3-44.9); Hemoglobin 9.9 g/dL (11.5-15.4)
[2020-08-11] MEDS ORDERED: 0.9 % Sodium Chloride 250 ML IVC ONE (11:03)
[2020-08-11] MEDS: Brinzolamide 1% 10 ML BOTTLE BOTH EYES SCH ×2 (11:48→19:43)
[2020-08-11] MEDS: *HR* Heparin 5,000 UNIT/ML VIAL SQ SCH (16:26)
[2020-08-11] MEDS: Aspirin Enteric Coated 81 MG Tablet PO SCH (19:39)
[2020-08-11] MEDS: Latanoprost 2.5 ML BOTTLE BOTH EYES SCH (21:51)
[2020-08-12 01:40] LABS: Basophils % 0.3 %; Eosinophils % 0.3 %; Hematocrit 33.8 % (35.3-44.9); Hemoglobin 10.7 g/dL (11.5-15.4); Immature Granulocytes % 0.7 % (0-4); Lymphocytes % 8.1 %; Mean Corpuscular HGB Conc 31.7 g/dL (31.6-35.5); Mean Corpuscular Hemoglobin 31.6 pg (28.0-33.3); Mean Corpuscular Volume 99.7 fL (83.0-100.0); Monocytes # 1.1 K/mcL (0.0-1.3); Monocytes % 9.2 %; Neutrophils # 9.7 K/mcL (1.6-8.9); Platelet Count 147 K/mcL (140-400); Red Blood Count 3.39 M/mcL (3.82-4.97); Red Cell Distribution Width 13.3 % (11.5-14.5); Segmented Neutrophils % 81.4 %; White Blood Count 11.9 K/mcL (4.3-11.1)
[2020-08-12 01:59] LABS: BUN/Creatinine Ratio 37 (6-26); Blood Urea Nitrogen 25 mg/dL (8-23); Calcium 8.1 mg/dL (8.6-10.3); Carbon Dioxide 19 mEq/L (23-29); Chloride 115 mEq/L (98-107); Glucose 134 mg/dL (70-105); Magnesium 1.7 mg/dL (1.6-2.6); Osmolality,Calculated 294 (280-300); Phosphorous 2.4 mg/dL (2.7-4.5); Potassium 3.7 mEq/L (3.5-5.1); Sodium 139 mEq/L (136-145); eGFR For African Americans > 60 (> 60); eGFR For Non-African Americans > 60 (> 60)
[2020-08-12] MEDS: *HR* Heparin 5,000 UNIT/ML VIAL SQ SCH ×2 (06:15→16:48)
[2020-08-12] MEDS: 0.9 % Sodium Chloride 1,000 ML IVC SCH (06:19)
[2020-08-12] MEDS: Cholecalciferol (D-3) 1,000 UNIT (25MCG) TABLET PO SCH (07:47)
[2020-08-12] MEDS: Ascorbic Acid 500 MG TABLET PO SCH ×2 (07:47→16:47)
[2020-08-12] MEDS: Multivit/Ca/Min/Fe/FA 1 TAB TABLET PO SCH (07:48)
[2020-08-12] MEDS: Pyridoxine (B-6) 50 MG TABLET PO SCH (07:48)
[2020-08-12] MEDS: Cyanocobalamin (B-12) 1,000 MCG TABLET PO SCH (07:48)
[2020-08-12] MEDS: Aspirin Enteric Coated 81 MG Tablet PO SCH (07:48)
[2020-08-12] MEDS: Brinzolamide 1% 10 ML BOTTLE BOTH EYES SCH ×2 (07:59→22:16)
[2020-08-12] MEDS ORDERED: Furosemide 20 MG/2 ML VIAL IVP ONE ×2 (11:50→18:10)
[2020-08-12] MEDS ORDERED: Albumin 25% 25gram/100mL 25 GM/100 ML IV.SOLN IVPB ONE (11:50)
[2020-08-12] MEDS: polyethylene glycoL 3350 17 GM POWD.PACK PO SCH (12:05)
[2020-08-12] MEDS: Sennosides/Docusate Sodium TABLET PO SCH ×2 (12:06→22:14)
[2020-08-12] MEDS: Latanoprost 2.5 ML BOTTLE BOTH EYES SCH (17:20)
[2020-08-13 01:42] LABS: Basophils % 0.3 %; Eosinophils % 0.3 %; Hematocrit 30.3 % (35.3-44.9); Hemoglobin 10.1 g/dL (11.5-15.4); Immature Granulocytes % 0.7 % (0-4); Lymphocytes # 0.4 K/mcL (0.6-4.6); Lymphocytes % 5.8 %; Mean Corpuscular HGB Conc 33.3 g/dL (31.6-35.5); Mean Corpuscular Hemoglobin 32.1 pg (28.0-33.3); Mean Corpuscular Volume 96.2 fL (83.0-100.0); Mean Platelet Volume 9.8 fL (9.4-12.4); Monocytes # 0.7 K/mcL (0.0-1.3); Monocytes % 9.9 %; Neutrophils # 5.6 K/mcL (1.6-8.9); Platelet Count 155 K/mcL (140-400); Red Blood Count 3.15 M/mcL (3.82-4.97); Red Cell Distribution Width 13.3 % (11.5-14.5); White Blood Count 6.8 K/mcL (4.3-11.1)
[2020-08-13 02:01] LABS: BUN/Creatinine Ratio 41 (6-26); Blood Urea Nitrogen 24 mg/dL (8-23); Calcium 8.5 mg/dL (8.6-10.3); Carbon Dioxide 22 mEq/L (23-29); Chloride 112 mEq/L (98-107); Glucose 109 mg/dL (70-105); Magnesium 1.7 mg/dL (1.6-2.6); Osmolality,Calculated 297 (280-300); Phosphorous 2.5 mg/dL (2.7-4.5); Potassium 3.2 mEq/L (3.5-5.1); Sodium 141 mEq/L (136-145); eGFR For African Americans > 60 (> 60); eGFR For Non-African Americans > 60 (> 60)
[2020-08-13] MEDS: *HR* Heparin 5,000 UNIT/ML VIAL SQ SCH (05:13)
[2020-08-13] MEDS: Ascorbic Acid 500 MG TABLET PO SCH (08:42)
[2020-08-13] MEDS: Aspirin Enteric Coated 81 MG Tablet PO SCH (08:42)
[2020-08-13] MEDS: Cyanocobalamin (B-12) 1,000 MCG TABLET PO SCH (08:43)
[2020-08-13] MEDS: Sennosides/Docusate Sodium TABLET PO SCH (08:43)
[2020-08-13] MEDS: polyethylene glycoL 3350 17 GM POWD.PACK PO SCH (08:43)
[2020-08-13] MEDS: Multivit/Ca/Min/Fe/FA 1 TAB TABLET PO SCH (08:43)
[2020-08-13] MEDS: Pyridoxine (B-6) 50 MG TABLET PO SCH (08:43)
[2020-08-13] MEDS: Cholecalciferol (D-3) 1,000 UNIT (25MCG) TABLET PO SCH (08:43)
[2020-08-13] MEDS: Brinzolamide 1% 10 ML BOTTLE BOTH EYES SCH (08:52)
[2020-08-13] MEDS ORDERED: Furosemide 20 MG/2 ML VIAL IVP ONE (09:07)
[2020-08-13 10:40] VITALS: BP 123/68
[2020-08-14] MEDS ORDERED: Aspirin Enteric Coated 81 MG Tablet PO SCH (19:37)
== END 2020-08-13 15:02 | disposition home health service (06) | DRG 521 ==
LOC: 3BNU 11:23 → EMEROOARM 11:23 → 3BNU 14:54 → SUATTDRO 17:08 → 3NENU 08-10 17:31
PROVIDERS: ADMIT Internal Medicine; ATTEND Internal Medicine

== ENCOUNTER 2021-03-30 13:51 | Inpatient (IN) ==
[2021-03-30] MEDS ORDERED: Famotidine 20 MG/2 ML VIAL IVP ONE (14:26)
[2021-03-30] MEDS ORDERED: Isovue-370 500 ML BOTTLE IVP ONE (14:26)
[2021-03-30] MEDS ORDERED: 0.9 % Sodium Chloride 1,000 ML IVC ONE (14:26)
[2021-03-30 15:31] LABS: Bilirubin,Urine Small (Negative); Blood,Urine Negative (Negative); Clarity,Urine Clear (Clear); Color,Urine Yellow (Yellow); Glucose,Urine (UA) Normal (Normal); Ketones,Urine 10 mg/dL (Negative); Leukocyte Esterase,Urine Negative (Negative); Mucus,Urine Few per lpf (None-Few); Nitrite,Urine Negative (Negative); Protein,Urine 30 mg/dL (Neg-Trace); RBC,Urine 0-3 per hpf (0-3); WBC,Urine 0-3 per hpf (0-3)
[2021-03-30 15:38] LABS: Basophils % 0.3 %; Eosinophils % 0.1 %; Hematocrit 41.6 % (35.3-44.9); Hemoglobin 13.9 g/dL (11.5-15.4); Immature Granulocytes % 0.5 % (0-4); Lymphocytes # 1.3 K/mcL (0.6-4.6); Lymphocytes % 14.3 %; Mean Corpuscular HGB Conc 33.4 g/dL (31.6-35.5); Mean Corpuscular Hemoglobin 32.3 pg (28.0-33.3); Mean Corpuscular Volume 96.7 fL (83.0-100.0); Mean Platelet Volume 9.5 fL (9.4-12.4); Monocytes # 0.8 K/mcL (0.0-1.3); Monocytes % 8.5 %; Neutrophils # 6.7 K/mcL (1.6-8.9); Platelet Count 287 K/mcL (140-400); Red Cell Distribution Width 13.5 % (11.5-14.5); Segmented Neutrophils % 76.3 %; White Blood Count 8.8 K/mcL (4.3-11.1)
[2021-03-30 16:07] LABS: Alanine Aminotransferase 6 Units/L (7-52); Albumin 2.9 g/dL (3.5-5.7); Alkaline Phosphatase 73 Units/L (34-104); Aspartate Amino Transferase 19 Units/L (13-39); BUN/Creatinine Ratio 70 (6-26); Bilirubin,Direct 0.2 mg/dL (0.0-0.2); Bilirubin,Indirect 0.4 mg/dL (0.0-1.0); Bilirubin,Total 0.6 mg/dL (0.3-1.0); Blood Urea Nitrogen 28 mg/dL (8-23); Calcium 8.3 mg/dL (8.6-10.3); Carbon Dioxide 28 mEq/L (23-29); Chloride 99 mEq/L (98-107); Globulin 2.8 g/dL (2.4-3.5); Glucose 89 mg/dL (70-105); Lipase 18 Units/L (11-82); Magnesium 1.8 mg/dL (1.6-2.6); Osmolality,Calculated 289 (280-300); Potassium 2.8 mEq/L (3.5-5.1); Sodium 137 mEq/L (136-145); Total Protein 5.7 g/dL (6.4-8.9); Troponin I 0.04 ng/mL (< 0.04); eGFR For African Americans > 60 (> 60); eGFR For Non-African Americans > 60 (> 60)
[2021-03-30] MEDS ORDERED: Potassium Chloride Elixir 20 MEQ/15 ML UDC PO ONE (16:34)
[2021-03-30] MEDS ORDERED: Naloxone 0.4 MG/ML INJ IVP PRN (17:37)
[2021-03-30] MEDS ORDERED: Ondansetron 4 MG/2 ML VIAL IVP PRN (17:37)
[2021-03-30] MEDS ORDERED: Aspirin 325 MG TABLET PO ONE (17:40)
[2021-03-30] MEDS ORDERED: Ringers Solution, Lactated 1,000 ML IVC ONE (17:41)
[2021-03-30] MEDS ORDERED: *HR* OxyCODONE Immed Rel 5 MG TABLET PO PRN (17:45)
[2021-03-30] MEDS ORDERED: D5% in Lactated Ringers 1,000 ML IVC SCH (17:45)
[2021-03-31 06:30] LABS: Hematocrit 43.8 % (35.3-44.9); Hemoglobin 14.1 g/dL (11.5-15.4); Mean Corpuscular HGB Conc 32.2 g/dL (31.6-35.5); Mean Corpuscular Hemoglobin 31.8 pg (28.0-33.3); Mean Corpuscular Volume 98.6 fL (83.0-100.0); Mean Platelet Volume 9.6 fL (9.4-12.4); Platelet Count 297 K/mcL (140-400); Red Blood Count 4.44 M/mcL (3.82-4.97); Red Cell Distribution Width 13.4 % (11.5-14.5); White Blood Count 6.6 K/mcL (4.3-11.1)
[2021-03-31 06:38] LABS: Prothrombin Time 11.7 Seconds (9.4-12.1)
[2021-03-31] MEDS ORDERED: Ringers Solution, Lactated 1,000 ML IVC ONE (07:25)
[2021-03-31] MEDS: Aspirin 81 MG TAB.CHEW PO SCH (08:14)
[2021-03-31 09:51] LABS: Alanine Aminotransferase 8 Units/L (7-52); Albumin 2.9 g/dL (3.5-5.7); Albumin/Globulin Ratio 1.1 (1.1-2.2); Alkaline Phosphatase 72 Units/L (34-104); Aspartate Amino Transferase 21 Units/L (13-39); BUN/Creatinine Ratio 51 (6-26); Bilirubin,Total 0.6 mg/dL (0.3-1.0); Blood Urea Nitrogen 21 mg/dL (8-23); Calcium 8.2 mg/dL (8.6-10.3); Carbon Dioxide 27 mEq/L (23-29); Chloride 100 mEq/L (98-107); Globulin 2.7 g/dL (2.4-3.5); Glucose 82 mg/dL (70-105); Osmolality,Calculated 286 (280-300); Potassium 3.5 mEq/L (3.5-5.1); Sodium 137 mEq/L (136-145); Total Protein 5.6 g/dL (6.4-8.9); eGFR For African Americans > 60 (> 60); eGFR For Non-African Americans > 60 (> 60)
[2021-03-31 11:22] LABS: Lactate Dehydrogenase 208 Units/L (140-271); Uric Acid 3.7 mg/dL (2.3-7.6)
[2021-03-31] MEDS ORDERED: Latanoprost 2.5 ML BOTTLE BOTH EYES SCH (18:00)
[2021-03-31] MEDS: Morphine Sulfate Oral CONC 10 MG/0.5 ML ORAL.SYG SL PRN (18:39)
[2021-03-31] MEDS ORDERED: Mirtazapine 15 MG TABLET PO SCH (21:00)
[2021-04-01 01:38] LABS: Hematocrit 39.7 % (35.3-44.9); Hemoglobin 13.1 g/dL (11.5-15.4); Mean Corpuscular Hemoglobin 31.9 pg (28.0-33.3); Mean Corpuscular Volume 96.6 fL (83.0-100.0); Mean Platelet Volume 9.7 fL (9.4-12.4); Platelet Count 285 K/mcL (140-400); Red Blood Count 4.11 M/mcL (3.82-4.97); Red Cell Distribution Width 13.4 % (11.5-14.5); White Blood Count 7.3 K/mcL (4.3-11.1)
[2021-04-01 01:51] LABS: Alanine Aminotransferase 6 Units/L (7-52); Albumin 2.3 g/dL (3.5-5.7); Albumin/Globulin Ratio 0.9 (1.1-2.2); Alkaline Phosphatase 61 Units/L (34-104); Aspartate Amino Transferase 18 Units/L (13-39); BUN/Creatinine Ratio 55 (6-26); Bilirubin,Total 0.5 mg/dL (0.3-1.0); Blood Urea Nitrogen 16 mg/dL (8-23); Calcium 7.6 mg/dL (8.6-10.3); Carbon Dioxide 24 mEq/L (23-29); Chloride 101 mEq/L (98-107); Globulin 2.6 g/dL (2.4-3.5); Glucose 69 mg/dL (70-105); Osmolality,Calculated 276 (280-300); Potassium 3.9 mEq/L (3.5-5.1); Sodium 133 mEq/L (136-145); Total Protein 4.9 g/dL (6.4-8.9); eGFR For African Americans > 60 (> 60); eGFR For Non-African Americans > 60 (> 60)
[2021-04-01 04:23] VITALS: O2SAT 95
[2021-04-01 06:41] VITALS: BP 109/66; PULSE 90; TEMP 97.9
[2021-04-01] MEDS: Aspirin 81 MG TAB.CHEW PO SCH (09:05)
[2021-04-01] MEDS: Morphine Sulfate Oral CONC 10 MG/0.5 ML ORAL.SYG SL PRN (13:36)
== END 2021-04-01 14:39 | disposition hospice, home (50) | DRG 374 ==
LOC: 3ANU 13:51 → EMEROOARM 13:51 → SUATTDRO 19:46 → 3ANU 20:43
PROVIDERS: ADMIT Internal Medicine; ATTEND Internal Medicine